=== PATIENT | female | born 1945 | race Hispanic/Latino ===

== ENCOUNTER 2019-02-23 14:10 | Inpatient (IN) | payer MEDICARE ==
[~2019-02-23] VITALS: Ht 157.5 cm; Wt 51.5 kg
[2019-02-23 14:49] LABS: BASOPHILS % (AUTO) 0.3 % (0.0-5.0); HEMATOCRIT 34.2 % (36-48); LYMPHOCYTES % (AUTO) 4.5 % (21.0-51.0); MEAN CORPUSCULAR HEMOGLOBIN 30.9 pg (27.0-33.0); MEAN CORPUSCULAR HGB CONC 32.5 g/dL (32.0-36.0); MEAN CORPUSCULAR VOLUME 95.2 fL (79-99); MONOCYTES % (AUTO) 4.7 % (3.0-13.0); NEUTROPHILS % (AUTO) 90.5 % (40.0-77.0); PLATELET COUNT (AUTO) 274 K/uL (130-400); RED BLOOD CELL COUNT(AUTO) 3.59 MIL/uL (4.00-5.50); RED CELL DISTRIBUTION WIDTH 13.5 % (11.0-15.5); WHITE BLOOD COUNT (AUTO) 15.8 K/uL (4.8-10.8)
[2019-02-23 14:58] LABS: APPEARANCE,URINE TURBID (CLEAR); BILIRUBIN,URINE NEGATIVE (NEGATIVE); COLOR,URINE YELLOW (YELLOW); GLUCOSE, URINE (UA) >=1000 mg/dL (NEGATIVE); KETONES,URINE 40 mg/dL (NEGATIVE); LEUKOCYTE ESTERASE ,URINE MODERATE (NEGATIVE); NITRATE,URINE NEGATIVE (NEGATIVE); OCCULT BLOOD,URINE LARGE (NEGATIVE); PROTEIN,URINE 30 mg/dL (NEGATIVE); UROBILINOGEN,URINE 0.2 mg/dL (0.2-1.0)
[2019-02-23] MEDS ORDERED: CEFTRIAXONE SODIUM 1 GM ONE (15:01)
[2019-02-23] MEDS ORDERED: SODIUM CHLORIDE 0.9% 1000ML 1,000 ML IV ONE ×2 (15:01→19:28)
[2019-02-23] MEDS ORDERED: SODIUM CHLORIDE 0.9% 50 ML IV ONE (15:02)
[2019-02-23 15:03] LABS: INR 0.93 (0.85-1.15); PARTIAL THROMBOPLASTIN TIME 23.6 SEC (26.3-35.5); PROTHROMBIN TIME 9.8 SEC (9.6-11.6)
[2019-02-23 15:28] LABS: YEAST,URINE BUDDING Many /HPF (None Seen)
[2019-02-23 15:28] LABS: CREATINE KINASE, TOTAL 182 U/L (21-232); MYOGLOBIN 332 ng/mL (10-92); TROPONIN I < 0.04 ng/mL (0.00-0.06)
[2019-02-23 15:29] LABS: BACTERIA,URINE Moderate /HPF (None Seen); MUCUS,URINE Few LPF (None Seen)
[2019-02-23] MEDS ORDERED: SODIUM CHLORIDE 0.9% 500ML 500 ML IV ONE (15:45)
[2019-02-23 16:08] LABS: ALBUMIN 3.1 g/dL (3.5-5.0); BILIRUBIN,TOTAL 0.6 mg/dL (0.2-1.0); POTASSIUM 5.8 mmol/L (3.5-5.1); TOTAL PROTEIN, SERUM 7.8 g/dL (6.0-8.3)
[2019-02-23] MEDS ORDERED: CALCIUM GLUCONATE 1 GM/10 ML VIAL IV ONE (16:18)
[2019-02-23] MEDS ORDERED: SODIUM CHLORIDE 0.9% 100 ML IV ONE (16:30)
[2019-02-23] MEDS ORDERED: INSULIN HUMULIN R 100 UNIT/ML 3ML ONE (16:32)
[2019-02-23 16:43] LABS: ABG BASE EXCESS -16.3 mmol/L (-2.0-3.0); ABG HCO3 8.5 mmol/L (21.0-28.0); ABG OXYGEN SATURATION 94.4 % (95.0-99.0); ABG PCO2 20 mmHg (32-45)
[2019-02-23] MEDS ORDERED: SODIUM CHLORIDE 0.9% 1000ML 1,000 ML IV SCH (19:06)
[2019-02-23] MEDS: SODIUM CHLORIDE 0.9% 1000ML 1,000 ML IV SCH (19:06)
[2019-02-23] MEDS ORDERED: MAGNESIUM 2GM PREMIX 50ML 50 ML IV PRN (19:15)
[2019-02-23] MEDS ORDERED: INSULIN HUMULIN R 100 UNIT/ML 3ML IV SCH (19:15)
[2019-02-23] MEDS ORDERED: DEXTROSE 5 %-0.45 % NACL 1,000 ML IV ONE (19:29)
[2019-02-23 19:44] LABS: CREATININE 3.4 mg/dL (0.5-1.5); MAGNESIUM 2.7 mg/dL (1.80-2.40); POTASSIUM 4.4 mmol/L (3.5-5.1)
[2019-02-23] MEDS: CEFTRIAXONE SODIUM 1 GM IVP SCH (19:45)
[2019-02-23 20:07] LABS: ABG BASE EXCESS -13.7 mmol/L (-2.0-3.0); ABG HCO3 10.1 mmol/L (21.0-28.0); ABG OXYGEN SATURATION 97.9 % (95.0-99.0); ABG PCO2 21 mmHg (32-45)
[2019-02-23] MEDS ORDERED: FAMOTIDINE/PF 20 MG/2 ML VIAL IV ONE (20:27)
[2019-02-23] MEDS ORDERED: ONDANSETRON HCL 4 MG/2 ML VIAL ONE (20:27)
[2019-02-23 23:45] VITALS: BP 96/43
[2019-02-23] MEDS ORDERED: ONDANSETRON HCL 4 MG/2 ML VIAL IVP PRN (23:45)
[2019-02-24] VITALS (57 sets, daily range): BP systolic 85–124; BP diastolic 41–61
[2019-02-24 01:27] LABS: ABG BASE EXCESS -9.2 mmol/L (-2.0-3.0); ABG HCO3 15.8 mmol/L (21.0-28.0); ABG OXYGEN SATURATION 96.1 % (95.0-99.0); ABG PCO2 33 mmHg (32-45)
[2019-02-24] MEDS: DEXTROSE 5 %-0.45 % NACL 1,000 ML IV PRN ×2 (01:42→11:00)
[2019-02-24] MEDS ORDERED: METO25TA6 PO (05:07)
[2019-02-24] MEDS ORDERED: DOCU100C33 PO (05:07)
[2019-02-24] MEDS ORDERED: PREG150C PO (05:07)
[2019-02-24] MEDS ORDERED: DONE5TAB33 PO (05:07)
[2019-02-24] MEDS ORDERED: INSU100C14 SQ (05:07)
[2019-02-24] MEDS ORDERED: NIFE30TA98 PO (05:07)
[2019-02-24 07:29] LABS: CREATININE 2.8 mg/dL (0.5-1.5); MAGNESIUM 2.5 mg/dL (1.80-2.40); POTASSIUM 3.6 mmol/L (3.5-5.1)
[2019-02-24] MEDS: SODIUM CHLORIDE 0.9% 1000ML 1,000 ML IV SCH ×5 (07:45→20:47)
[2019-02-24] MEDS: FAMOTIDINE/PF 20 MG/2 ML VIAL IV SCH (07:58)
[2019-02-24] MEDS: CEFTRIAXONE SODIUM 1 GM IVP SCH ×2 (07:58→20:47)
[2019-02-24] MEDS: FLUCONAZOLE 200 MG/NS 100 ML 100 ML IV SCH (07:58)
--- NOTE | 2019-02-24 12:08 | NUR ---
DR. BRADSHAW IN ROOM ASSESSING/SPEAKING WITH PT. RE:PLAN OF CARE. QUESTIONS ANSWERED BY DR. BRADSHAW, PT. VERBALIZED UNDERSTANDING.
[2019-02-24] MEDS: INSULIN LISPRO 100 UNIT/ML 3ML SQ SCH ×2 (12:55→17:28)
[2019-02-24 13:00] LABS: ABG HCO3 18.1 mmol/L (21.0-28.0); ABG OXYGEN SATURATION 97.5 % (95.0-99.0); ABG PCO2 32 mmHg (32-45)
[2019-02-24 13:24] LABS: CREATININE 2.5 mg/dL (0.5-1.5); MAGNESIUM 2.4 mg/dL (1.80-2.40); POTASSIUM 3.4 mmol/L (3.5-5.1)
--- NOTE | 2019-02-24 15:57 | NUR ---
DC PLAN PER PATIENT, LIVES WITH DAUGHTER AND GRANDCHILD AND IS INDEPENDENT. NO PROVIDER SERVICES, HAS EBONY AND VINEET. PER PATIENT, FEELS SAFE TO RETURN HOME. Addendum: 02/24/19 at 1559 by GLENNA ELAM Amended: Links added.
[2019-02-24] MEDS: ENOXAPARIN SODIUM 30 MG/0.3 ML SQ SCH (20:48)
[2019-02-24] MEDS: INSULIN GLARGINE 100 UNITS/ML 10 ML VIAL SQ SCH (20:48)
[2019-02-25] VITALS (9 sets, daily range): BP systolic 126–152; BP diastolic 52–75
[2019-02-25 03:36] LABS: HEMATOCRIT 26.6 % (36-48); MEAN CORPUSCULAR HEMOGLOBIN 31.3 pg (27.0-33.0); MEAN CORPUSCULAR HGB CONC 33.9 g/dL (32.0-36.0); MEAN CORPUSCULAR VOLUME 92.4 fL (79-99); PLATELET COUNT (AUTO) 199 K/uL (130-400); RED BLOOD CELL COUNT(AUTO) 2.88 MIL/uL (4.00-5.50); RED CELL DISTRIBUTION WIDTH 13.4 % (11.0-15.5); WHITE BLOOD COUNT (AUTO) 8.3 K/uL (4.8-10.8)
[2019-02-25 03:44] LABS: HEMOGLOBIN A1C 12.7 % (4.0-6.0)
[2019-02-25 04:03] LABS: CREATININE 1.6 mg/dL (0.5-1.5); MAGNESIUM 2.1 mg/dL (1.80-2.40); PHOSPHORUS 2.8 mg/dL (2.5-4.9); POTASSIUM 3.5 mmol/L (3.5-5.1); THYROID STIMULATING HORMONE 0.71 uIU/mL (0.36-3.74)
[2019-02-25] MEDS: INSULIN LISPRO 100 UNIT/ML 3ML SQ SCH ×3 (06:12→16:27)
[2019-02-25] MEDS: SODIUM CHLORIDE 0.9% 1000ML 1,000 ML IV SCH ×4 (06:12→23:48)
[2019-02-25] MEDS: CEFTRIAXONE SODIUM 1 GM IVP SCH ×2 (08:33→16:20)
[2019-02-25] MEDS: FLUCONAZOLE 200 MG/NS 100 ML 100 ML IV SCH (08:34)
[2019-02-25] MEDS: ENOXAPARIN SODIUM 30 MG/0.3 ML SQ SCH (08:34)
[2019-02-25] MEDS: FAMOTIDINE/PF 20 MG/2 ML VIAL IV SCH (08:35)
--- NOTE | 2019-02-25 11:30 | NUR ---
Dr. Weiss at bedside rounding and reviewed plan of care for the day. Ordered lactulose 1 time dose to be given
[2019-02-25] MEDS: NIFEDIPINE ER 30 MG TAB PO SCH (11:31)
[2019-02-25] MEDS: PREGABALIN 75 MG CAPSULE PO SCH (11:32)
--- NOTE | 2019-02-25 12:20 | NUR ---
Report given to Magnolia MANZANARES at about 1150. Patient transferred to room 313 from icu room 209 at 1220. All belonging went with the patient.
[2019-02-25] MEDS ORDERED: LACTULOSE 20 GM/30 ML UDCUP PO SCH ×2 (13:00→14:00)
[2019-02-25] MEDS ORDERED: LACTULOSE 20 GM/30 ML UDCUP ONE (16:18)
[2019-02-25] MEDS: METOPROLOL TARTRATE 25 MG TAB PO SCH (21:19)
[2019-02-25] MEDS: DOCUSATE SODIUM 100 MG CAP PO SCH (21:19)
[2019-02-25] MEDS: INSULIN GLARGINE 100 UNITS/ML 10 ML VIAL SQ SCH (21:20)
[2019-02-25] MEDS: ACYCLOVIR 800 MG TABLET PO SCH (22:01)
[2019-02-25] MEDS ORDERED: ACYCLOVIR TP SCH (23:00)
[2019-02-26 04:00] VITALS: BP 137/80
[2019-02-26] MEDS: ACYCLOVIR 800 MG TABLET PO SCH ×5 (06:06→22:12)
[2019-02-26] MEDS: CEFTRIAXONE SODIUM 1 GM IVP SCH ×2 (06:06→17:40)
[2019-02-26] MEDS: INSULIN LISPRO 100 UNIT/ML 3ML SQ SCH ×3 (06:07→17:50)
[2019-02-26] MEDS: SODIUM CHLORIDE 0.9% 1000ML 1,000 ML IV SCH (07:06)
[2019-02-26 08:00] VITALS: BP 162/85
[2019-02-26] MEDS: METOPROLOL TARTRATE 25 MG TAB PO SCH ×2 (09:17→19:45)
[2019-02-26] MEDS: NIFEDIPINE ER 30 MG TAB PO SCH (09:17)
[2019-02-26] MEDS: DONEPEZIL HCL 5 MG TAB PO SCH (09:17)
[2019-02-26] MEDS: FAMOTIDINE/PF 20 MG/2 ML VIAL IV SCH (09:17)
[2019-02-26] MEDS: PREGABALIN 75 MG CAPSULE PO SCH (09:17)
[2019-02-26] MEDS: DOCUSATE SODIUM 100 MG CAP PO SCH ×2 (09:17→19:45)
[2019-02-26] MEDS: ENOXAPARIN SODIUM 30 MG/0.3 ML SQ SCH (09:18)
[2019-02-26] MEDS: FLUCONAZOLE 200 MG/NS 100 ML 100 ML IV SCH (09:18)
[2019-02-26 09:23] LABS: BASOPHILS % (AUTO) 0.7 % (0.0-5.0); EOSINOPHILS % (AUTO) 0.9 % (0.0-8.0); HEMATOCRIT 31.7 % (36-48); LYMPHOCYTES % (AUTO) 17.3 % (21.0-51.0); MEAN CORPUSCULAR HEMOGLOBIN 31.2 pg (27.0-33.0); MEAN CORPUSCULAR HGB CONC 33.8 g/dL (32.0-36.0); MEAN CORPUSCULAR VOLUME 92.1 fL (79-99); MONOCYTES % (AUTO) 9.3 % (3.0-13.0); NEUTROPHILS % (AUTO) 71.8 % (40.0-77.0); PLATELET COUNT (AUTO) 218 K/uL (130-400); RED BLOOD CELL COUNT(AUTO) 3.45 MIL/uL (4.00-5.50); WHITE BLOOD COUNT (AUTO) 6.7 K/uL (4.8-10.8)
[2019-02-26 09:35] LABS: CREATININE 0.9 mg/dL (0.5-1.5); MAGNESIUM 1.4 mg/dL (1.80-2.40); PHOSPHORUS 2.6 mg/dL (2.5-4.9)
[2019-02-26 10:16] LABS: POTASSIUM 2.8 mmol/L (3.5-5.1)
[2019-02-26] MEDS: POTASSIUM CHLORIDE 10MEQ/100ML 100 ML IV PRN ×2 (10:21→13:19)
[2019-02-26 12:00] VITALS: BP 140/71
[2019-02-26 16:00] VITALS: BP 152/76
[2019-02-26] MEDS ORDERED: POTASSIUM CHLORIDE 20MEQ/100ML 100 ML IV ONE (18:50)
[2019-02-26 19:00] VITALS: BP 122/50
[2019-02-26] MEDS ORDERED: POTASSIUM CHLORIDE 20 MEQ ERTAB PO PRN (19:00)
[2019-02-26] MEDS ORDERED: LIDOCAINE HCL-MPF 1% 2ML VIAL IV PRN ×2 (19:00)
[2019-02-26] MEDS ORDERED: POTASSIUM CHLORIDE 20MEQ/100ML 100 ML IV PRN (19:00)
[2019-02-26] MEDS ORDERED: POTASSIUM CHLORIDE 10MEQ/100ML 100 ML IV PRN (19:00)
[2019-02-26] MEDS ORDERED: POTASSIUM CHLORIDE 10% ELIXIR 20 MEQ/15 ML UDCUP PO PRN ×2 (19:00)
[2019-02-26] MEDS: INSULIN GLARGINE 100 UNITS/ML 10 ML VIAL SQ SCH (20:38)
[2019-02-26] MEDS: POTASSIUM CHLORIDE 20 MEQ ERTAB PO PRN ×2 (21:15→22:46)
[2019-02-27] VITALS (9 sets, daily range): BP systolic 84–124; BP diastolic 40–65
[2019-02-27] MEDS: SODIUM CHLORIDE 0.9% 500ML 500 ML IV SCH ×2 (00:05→01:12)
--- NOTE | 2019-02-27 00:06 | NUR ---
Low BP Spoke with LUANA ANALYST PROGRAMMER regional flatbed truck driver hospitalist, and informed him that patient BP at first was 80/47, on re-check was 91/47. Patient asymptomatic states she feels perfectly fine. Orders received to give 500cc NS bolus x 1 dose. Will continue to monitor patient.
--- NOTE | 2019-02-27 01:00 | NUR ---
BLOOD PRESSURE INFORMED LUANA DIRECTOR CARD FOR HOSPITALIST THAT PATIENTS BP WAS 82/40 AFTER 500CC NS BOLUS WAS GIVEN. HE STATED HE WOULD BE DOWN TO ASSESS PATIENT.
--- NOTE | 2019-02-27 01:05 | NUR ---
OFFSHORE WIND TURBINE TECHNICIAN ROUNDS AJ WEAVER WIRE LOOM FOR HOSPITALIST IN PATIENTS ROOM ASSESSING PATIENT, PATIENT EASILY AROUSABLE STATED SHE FEELS FINE. ORDERS RECEIVED TO GIVE ANOTHER 500CC NS BOLUS WHICH WAS STARTED WHILE WEAVER WIRE LOOM WAS IN ROOM. WILL CONTINUE TO MONITOR PATIENT.
[2019-02-27] MEDS ORDERED: SODIUM CHLORIDE 0.9% 500ML 500 ML IV SCH (01:15)
--- NOTE | 2019-02-27 03:40 | NUR ---
LOW BP INFORMED AJ NAVIGATION OFFICER LEADERSHIP INTERN HOSPITALIST THAT PATIENTS BLOOD PRESSURE WAS 84/40 HR 76. INFORMED HIM THAT PATIENT IS ALERT AND STATES SHE FEELS FINE. NAVIGATION OFFICER STATED THAT SINCE PATIENT IS ASYMPTOMATIC AND SINCE WE HAVE ALREADY GIVEN THE PATIENT NS BOLUS X2, TO CONTINUE TO MONITOR PATIENT. NO FURTHER ORDERS RECEIVED AT THIS TIME.
[2019-02-27 05:16] LABS: BASOPHILS % (AUTO) 0.4 % (0.0-5.0); EOSINOPHILS % (AUTO) 0.9 % (0.0-8.0); HEMATOCRIT 25.2 % (36-48); LYMPHOCYTES % (AUTO) 20.2 % (21.0-51.0); MEAN CORPUSCULAR HEMOGLOBIN 31.4 pg (27.0-33.0); MEAN CORPUSCULAR HGB CONC 34.4 g/dL (32.0-36.0); MEAN CORPUSCULAR VOLUME 91.1 fL (79-99); NEUTROPHILS % (AUTO) 69.5 % (40.0-77.0); PLATELET COUNT (AUTO) 219 K/uL (130-400); RED BLOOD CELL COUNT(AUTO) 2.76 MIL/uL (4.00-5.50); WHITE BLOOD COUNT (AUTO) 7.7 K/uL (4.8-10.8)
[2019-02-27 05:23] LABS: CREATININE 1.2 mg/dL (0.5-1.5); POTASSIUM 3.5 mmol/L (3.5-5.1)
[2019-02-27] MEDS: ACYCLOVIR 800 MG TABLET PO SCH ×5 (05:33→23:36)
[2019-02-27] MEDS: POTASSIUM CHLORIDE 20 MEQ ERTAB PO PRN ×2 (05:34→21:18)
[2019-02-27] MEDS: INSULIN LISPRO 100 UNIT/ML 3ML SQ SCH ×3 (06:25→17:05)
[2019-02-27] MEDS: FLUCONAZOLE 200 MG/NS 100 ML 100 ML IV SCH (08:40)
[2019-02-27] MEDS: CEFTRIAXONE SODIUM 1 GM IVP SCH ×2 (08:41→21:18)
[2019-02-27] MEDS: DOCUSATE SODIUM 100 MG CAP PO SCH ×2 (08:42→21:18)
[2019-02-27] MEDS: ENOXAPARIN SODIUM 30 MG/0.3 ML SQ SCH (08:42)
[2019-02-27] MEDS: NIFEDIPINE ER 30 MG TAB PO SCH (08:42)
[2019-02-27] MEDS: PREGABALIN 75 MG CAPSULE PO SCH (08:42)
[2019-02-27] MEDS: METOPROLOL TARTRATE 25 MG TAB PO SCH ×2 (08:43→21:18)
[2019-02-27] MEDS: DONEPEZIL HCL 5 MG TAB PO SCH (08:43)
[2019-02-27] MEDS: FAMOTIDINE/PF 20 MG/2 ML VIAL IV SCH (09:37)
--- NOTE | 2019-02-27 13:00 | NUR ---
SNF Met w pt this afternoon to discuss Md recommendations for short term SNF. Pt is in agreement. ELY/PC consent signed for [facility]. Clinical/PASRR faxed to [facility]. Spoke to Bailey over the phone regarding new referral. States will come by later today to eval pt. CM to continue to follow and wait for determination.
[2019-02-27] MEDS: INSULIN GLARGINE 100 UNITS/ML 10 ML VIAL SQ SCH (21:00)
[2019-02-28] VITALS (7 sets, daily range): BP systolic 98–144; BP diastolic 51–70
[2019-02-28 05:08] LABS: BASOPHILS % (AUTO) 0.6 % (0.0-5.0); EOSINOPHILS % (AUTO) 1.4 % (0.0-8.0); HEMATOCRIT 26.4 % (36-48); LYMPHOCYTES % (AUTO) 22.6 % (21.0-51.0); MEAN CORPUSCULAR HEMOGLOBIN 31.4 pg (27.0-33.0); MEAN CORPUSCULAR HGB CONC 33.7 g/dL (32.0-36.0); MONOCYTES % (AUTO) 7.2 % (3.0-13.0); NEUTROPHILS % (AUTO) 68.2 % (40.0-77.0); NUCLEATED RED BLOOD CELLS 0.1 % (0.0-0.19); PLATELET COUNT (AUTO) 242 K/uL (130-400); RED BLOOD CELL COUNT(AUTO) 2.83 MIL/uL (4.00-5.50); RED CELL DISTRIBUTION WIDTH 13.6 % (11.0-15.5); WHITE BLOOD COUNT (AUTO) 7.4 K/uL (4.8-10.8)
[2019-02-28 05:19] LABS: POTASSIUM 3.8 mmol/L (3.5-5.1)
[2019-02-28] MEDS: INSULIN LISPRO 100 UNIT/ML 3ML SQ SCH ×3 (06:14→17:00)
[2019-02-28] MEDS: CEFTRIAXONE SODIUM 1 GM IVP SCH ×2 (06:21→22:29)
[2019-02-28] MEDS: ACYCLOVIR 800 MG TABLET PO SCH ×5 (06:22→23:45)
[2019-02-28] MEDS: METOPROLOL TARTRATE 25 MG TAB PO SCH ×2 (09:04→22:29)
[2019-02-28] MEDS: PREGABALIN 75 MG CAPSULE PO SCH (09:04)
[2019-02-28] MEDS: DONEPEZIL HCL 5 MG TAB PO SCH (09:04)
[2019-02-28] MEDS: FAMOTIDINE/PF 20 MG/2 ML VIAL IV SCH (09:04)
[2019-02-28] MEDS: DOCUSATE SODIUM 100 MG CAP PO SCH ×2 (09:05→22:29)
[2019-02-28] MEDS: NIFEDIPINE ER 30 MG TAB PO SCH (09:05)
[2019-02-28] MEDS: ENOXAPARIN SODIUM 30 MG/0.3 ML SQ SCH (09:05)
[2019-02-28] MEDS: FLUCONAZOLE 200 MG/NS 100 ML 100 ML IV SCH (09:11)
--- NOTE | 2019-02-28 17:05 | NUR ---
Nutrition Intervention: Nutrition screen based on LOS x 5 days. Pt. admitted with Dx of diabetic ketoacidosis. Pt. pending SNF placement. Unable to speak with pt. during RD visit due to pt. was vomiting at the time- COMPUTER SUPPORT ANALYST aware. Pt. has Zofran prescribed for upper GI distress. Pt. on 75gm CCD diet with good p.o.intake. Labs reviewed(Alb 3.1, BG 139, HgbA1c 12.7%). LBM: 02/26/19. SR-18, perineum pustules. BMI: 20.8, appropriate for age. Recommendations: 1) Rec. 60g CCD diet. 2) Continue to monitor pt's nutritional status. 3) Consult RD as nutrition concerns arise. Addendum: 02/28/19 at [address] Amended: Links added.
--- NOTE | 2019-02-28 20:13 | NUR ---
Changes Of Mind In Placement Pt and family changed their mind, refused placement to [facility] and opted for [facility] In patient rehab. Pending authorization and acceptance.
[2019-02-28] MEDS: INSULIN GLARGINE 100 UNITS/ML 10 ML VIAL SQ SCH (22:36)
[2019-03-01 03:38] VITALS: BP 127/55
[2019-03-01] MEDS: ACYCLOVIR 800 MG TABLET PO SCH ×4 (07:09→18:49)
[2019-03-01] MEDS: INSULIN LISPRO 100 UNIT/ML 3ML SQ SCH ×3 (07:13→17:19)
[2019-03-01] MEDS: CEFTRIAXONE SODIUM 1 GM IVP SCH (08:08)
[2019-03-01] MEDS: FAMOTIDINE/PF 20 MG/2 ML VIAL IV SCH (08:08)
[2019-03-01] MEDS: DOCUSATE SODIUM 100 MG CAP PO SCH (08:08)
[2019-03-01] MEDS: DONEPEZIL HCL 5 MG TAB PO SCH (08:08)
[2019-03-01] MEDS: METOPROLOL TARTRATE 25 MG TAB PO SCH (08:10)
[2019-03-01] MEDS: PREGABALIN 75 MG CAPSULE PO SCH (08:11)
[2019-03-01] MEDS: NIFEDIPINE ER 30 MG TAB PO SCH (08:11)
[2019-03-01] MEDS: ENOXAPARIN SODIUM 30 MG/0.3 ML SQ SCH (08:11)
[2019-03-01 08:14] VITALS: BP 133/61
[2019-03-01] MEDS ORDERED: FLUCONAZOLE 100 MG TAB PO SCH (08:15)
[2019-03-01 12:00] VITALS: BP 121/60
[2019-03-01] MEDS ORDERED: ACYC800T PO (13:47)
--- NOTE | 2019-03-01 14:21 | NUR ---
ATTEMPTED REPORT CALLED TO [facility] THE STEEL WOOL MACHINE OPERATOR ATTEMPTED X2 TO CALL REPORT FOR PT D/C TO [facility] BUT NO RESPONSE AT THIS TIME, NURSING WILL CONTINUE TO FOLLOW UP.
--- NOTE | 2019-03-01 14:45 | NUR ---
PATIENT HAS BEEN ACCPTED AT [facility] GLENNA TIRED TO CALL REPORT [place] BUT NO ONE PICKED UP. JL ALSO TIRED, MULTIPEL TIMES THROUGH THE MAIN NUMBER AND DIRECTLY- BUT WAS NOT ABLE TO SPEAK TO ANYONE. WILL AWAIT TRANSPORT Addendum: 03/01/19 at 1521 by DEDE BROCK RN CM Amended: Links added.
--- NOTE | 2019-03-01 14:46 | NUR ---
PATIENT ACCEPTED AT [facility] RN ATTEMPTED TO CALL REPORT EARLIER BUT NO ONE PICKED UP. CM ALSO ATTEMPTED, MULTIPLE TIMES THROUGH THE MAIN NUMBER [phone] AND [phone] AND [phone] BUT WAS NOT ABLE TO SPEAK TO ANYONE. WILL AWAIT TRANSPORT.
--- NOTE | 2019-03-01 15:50 | NUR ---
CALL PLACED TO [facility] Call placed to [facility], Spoke with Babs, She stated as at the time they are unable to take report and will call this radio script writer back as soon as they become available, Gave them #[phone] to call when ready. Nursing will continue to follow up. Daughter with POA also made aware and updated.
--- NOTE | 2019-03-01 19:04 | NUR ---
[facility] I[facility]U ISSUE ESCALATED TO ILIANA REGARDING GIVING REPORT TO NURSE IN [facility], ILIANA ALSO ESCALATED THE ISSUE, LATER GOT A CALL FROM LAURA, REPORT GIVEN, FAMILY MEMBER (POLLY) NOT AVAILABLE TO ANSWER CALL TO PROVIDE TRANSPORTATION TO PT. NURSING WILL CONTINUE TO FOLLOW UP.
--- NOTE | 2019-03-01 20:14 | NUR ---
PT D/C PT FINALLY D/C, DAUGHTER (POLLY) WAS HERE TO GLOBAL MARKETING MANAGER PT @ 2004, D/C INSTRUCTION PROVIDED AND EXPLAINED TO PT AND FAMILY MEMBER, PT IS GOING TO ROOM 4313 AT [facility]. PT AND FAMILY TO CALL [phone] AT [facility] AND WILL BE DIRECTED, PT AND FAMILY VERBALIZED UNDERSTANDING OF D/C INSTRUCTION, PT SAFELY D/C WITH PRIVATE TRANSPORT. REPORT GIVEN TO LAURA.
== END 2019-03-01 20:25 | DRG 871 ==
LOC: EDH 14:10 → EDHIP 19:10 → 2BH 23:31 → 2CV 02-25 11:51 → 3CH 02-25 11:54
PROVIDERS: ADMIT Internal Medicine; ATTEND Internal Medicine
DX: A41.9 Sepsis, unspecified organism (principal); E11.10 Type 2 diabetes mellitus with ketoacidosis without coma; G93.41 Metabolic encephalopathy; N18.6 End stage renal disease; N39.0 Urinary tract infection, site not specified; N17.9 Acute kidney failure, unspecified; E87.1 Hypo-osmolality and hyponatremia; I12.0 Hypertensive chronic kidney disease with stage 5 chronic kidney disease or end stage renal disease; G93.49 Other encephalopathy; M62.82 Rhabdomyolysis; J44.9 Chronic obstructive pulmonary disease, unspecified; Z96.41 Presence of insulin pump (external) (internal); E87.5 Hyperkalemia; R65.20 Severe sepsis without septic shock; E11.22 Type 2 diabetes mellitus with diabetic chronic kidney disease; B02.9 Zoster without complications; I95.9 Hypotension, unspecified; E86.1 Hypovolemia; Z79.899 Other long term (current) drug therapy; Z79.4 Long term (current) use of insulin; Z91.81 History of falling
CPT/HCPCS: 36415; 36600; 71045; 80048; 80053; 81001; 82010; 82550; 82803; 82948; 83036; 83605; 83735; 83874; 84100; 84132; 84145; 84443; 84484; 85025; 85027; 85610; 85730; 87040; 87088; 93005; 97039; 99291; G0378; J0610; J0696; J1450; J1650; J1815; J2405; J3480; J3490; J7030; J7040; J7042

== ENCOUNTER 2019-10-16 11:34 | Inpatient (IN) | payer MEDICARE ==
[2019-10-16] VITALS (15 sets, daily range): BP systolic 90–119; BP diastolic 34–67
[~2019-10-16] VITALS: Ht 162.6 cm; Wt 56.4 kg
[2019-10-16] MEDS ORDERED: ONDANSETRON HCL 4 MG/2 ML VIAL ONE ×2 (11:42→15:15)
[2019-10-16] MEDS ORDERED: INSULIN HUMULIN R 100 UNIT/ML 3ML ONE (11:43)
[2019-10-16] MEDS ORDERED: SODIUM CHLORIDE 0.9% 1000ML 1,000 ML IV ONE ×2 (11:43→13:19)
[2019-10-16 12:00] LABS: BASOPHILS % (AUTO) 0.1 % (0.0-5.0); EOSINOPHILS % (AUTO) 1.7 % (0.0-8.0); LYMPHOCYTES % (AUTO) 3.8 % (21.0-51.0); MEAN CORPUSCULAR HEMOGLOBIN 30.5 pg (27.0-33.0); MEAN CORPUSCULAR HGB CONC 30.6 g/dL (32.0-36.0); MEAN CORPUSCULAR VOLUME 99.7 fL (79-99); MONOCYTES % (AUTO) 5.9 % (3.0-13.0); NEUTROPHILS % (AUTO) 88.1 % (40.0-77.0); PLATELET COUNT (AUTO) 338 K/uL (130-400); RED BLOOD CELL COUNT(AUTO) 3.41 MIL/uL (4.00-5.50); RED CELL DISTRIBUTION WIDTH 13.6 % (11.0-15.5); WHITE BLOOD COUNT (AUTO) 10.4 K/uL (4.8-10.8)
[2019-10-16 12:03] LABS: APPEARANCE,URINE TURBID (CLEAR); BILIRUBIN,URINE NEGATIVE (NEGATIVE); COLOR,URINE ORANGE (YELLOW); GLUCOSE, URINE (UA) 250 mg/dL (NEGATIVE); KETONES,URINE 15 mg/dL (NEGATIVE); LEUKOCYTE ESTERASE ,URINE MODERATE (NEGATIVE); NITRATE,URINE POSITIVE (NEGATIVE); OCCULT BLOOD,URINE LARGE (NEGATIVE); PROTEIN,URINE 100 mg/dL (NEGATIVE)
[2019-10-16 12:03] LABS: ABG BASE EXCESS -20.8 mmol/L (-2.0-3.0); ABG HCO3 6.1 mmol/L (21.0-28.0); ABG PCO2 18 mmHg (32-45)
[2019-10-16] MEDS ORDERED: SODIUM CHLORIDE 0.9% 100 ML IV ONE (12:15)
[2019-10-16 12:21] LABS: ALBUMIN 3.6 g/dL (3.5-5.0); BILIRUBIN,TOTAL 0.7 mg/dL (0.2-1.0); CREATININE 5.8 mg/dL (0.5-1.5); TOTAL PROTEIN, SERUM 8.4 g/dL (6.0-8.3)
[2019-10-16 12:21] LABS: BACTERIA,URINE Many /HPF (None Seen); RBC,URINE 51-100 /HPF (0-1); SQUAMOUS EPITHELIAL CELL,UR None Seen /HPF (0-2); WBC,URINE >100 /HPF (0-1); YEAST,URINE BUDDING Many /HPF (None Seen)
[2019-10-16 12:27] LABS: POTASSIUM 6.2 mmol/L (3.5-5.1)
[2019-10-16] MEDS ORDERED: SODIUM CHLORIDE 0.9% 50 ML IV ONE (12:28)
[2019-10-16] MEDS ORDERED: CEFTRIAXONE SODIUM 2 GM VIAL ONE (12:28)
[2019-10-16 12:35] LABS: B-TYPE NATRIURETIC PEPTIDE 116 pg/mL (0-100)
[2019-10-16] MEDS ORDERED: CALCIUM GLUCONATE 1 GM/10 ML VIAL IV ONE (12:37)
[2019-10-16] MEDS ORDERED: SODIUM BICARB 50MEQ 50ML VIAL ONE ×2 (12:38→13:18)
[2019-10-16] MEDS ORDERED: ALBUTEROL SULFATE 0.083% 2.5 MG/3 ML INH IH ONE (12:51)
[2019-10-16] MEDS ORDERED: MAG HYDROX/AL HYDROX/SIMETH ES 30 ML SUSP UDCUP PO PRN (14:00)
[2019-10-16] MEDS ORDERED: ONDANSETRON HCL 4 MG/2 ML VIAL IV PRN (14:00)
[2019-10-16] MEDS ORDERED: GUAIFENESIN-DM 200/20 MG 10 ML PO PRN (14:00)
[2019-10-16] MEDS ORDERED: LACTULOSE 20 GM/30 ML UDCUP PO PRN (14:00)
[2019-10-16] MEDS ORDERED: ACETAMINOPHEN 325 MG TAB PO PRN (14:00)
[2019-10-16] MEDS ORDERED: DiphenhydrAMINE HCL 50 MG/ML VIAL IV PRN (14:00)
[2019-10-16] MEDS ORDERED: NITROGLYCERIN 0.4 MG SL TAB SL PRN (14:00)
[2019-10-16] MEDS ORDERED: INSULIN REGULAR, HUMAN 3ML 100 UNIT in SODIUM CHLORIDE 0.9% 99 ML IV PRN ×2 (14:00)
[2019-10-16] MEDS: ZOSYN 3.375GM+NS 50ML 50 ML IV SCH (14:15)
[2019-10-16] MEDS ORDERED: POTASSIUM CHLORIDE 10% ELIXIR 20 MEQ/15 ML UDCUP PO PRN (14:30)
[2019-10-16] MEDS ORDERED: POTASSIUM CHLORIDE 10MEQ/100ML 100 ML IV PRN ×2 (14:30)
[2019-10-16] MEDS ORDERED: ZOSYN 3.375GM+NS 50ML 50 ML IV ONE (14:46)
[2019-10-16] MEDS ORDERED: LACTATED RINGERS 1000ML 1,000 ML IV ONE (15:15)
[2019-10-16] MEDS: LACTATED RINGERS 1000ML 1,000 ML IV SCH ×2 (15:17→23:22)
[2019-10-16] MEDS ORDERED: ONDA4TAB4 PO (15:40)
[2019-10-16] MEDS ORDERED: GABA300C PO (15:40)
[2019-10-16] MEDS ORDERED: DONE5TAB33 PO (15:40)
[2019-10-16] MEDS ORDERED: INSU100I3 SQ (15:40)
[2019-10-16] MEDS ORDERED: NIFE30TA98 PO (15:40)
[2019-10-16] MEDS ORDERED: LISI-617 PO (15:40)
[2019-10-16] MEDS ORDERED: METO25 PO (15:40)
[2019-10-16 17:31] LABS: CREATININE 5.1 mg/dL (0.5-1.5); POTASSIUM 3.7 mmol/L (3.5-5.1)
[2019-10-16] MEDS: SODIUM CHLORIDE 0.9% 1000ML 1,000 ML IV SCH ×2 (19:00→20:00)
[2019-10-16] MEDS ORDERED: SODIUM CHLORIDE 0.9% 1000ML 2,000 ML IV ONE (19:23)
--- NOTE | 2019-10-16 21:46 | NUR ---
Report received from Dannielle MANZANARES on patient received in ICU at 1515. Oriented to own name. Confused statements. Oriented pt to place. Stated "Oh, I forgot I was in the hospital." Patient has dementia as per daughter according to [facility] nurse Dannielle's report. States patient takes Aricept at home. Insulin drip infusing at 7 units/hr. Initial assessment completed. Call light and needed items placed readily at hand. Encouraged to call prn.
[2019-10-16 22:08] LABS: CREATININE 4.3 mg/dL (0.5-1.5); POTASSIUM 3.8 mmol/L (3.5-5.1)
--- NOTE | 2019-10-16 23:03 | NUR ---
2150 Glucometer down to 149. Insulin drip stopped as per orders. BMP drawn. Anion Gap down to 10. Had a normal colored formed and loose bm, incontinent of urine. Pericare done. Call light and needed items readily at hand.
[2019-10-17] VITALS (18 sets, daily range): BP systolic 117–172; BP diastolic 46–77
[2019-10-17] MEDS: ZOSYN 3.375GM+NS 50ML 50 ML IV SCH (01:12)
[2019-10-17 04:40] LABS: ABG BASE EXCESS -6.8 mmol/L (-2.0-3.0); ABG HCO3 18.5 mmol/L (21.0-28.0); ABG OXYGEN SATURATION 96.7 % (95.0-99.0); ABG PCO2 36 mmHg (32-45)
[2019-10-17 06:06] LABS: BASOPHILS % (AUTO) 0.2 % (0.0-5.0); EOSINOPHILS % (AUTO) 0.7 % (0.0-8.0); LYMPHOCYTES % (AUTO) 7.3 % (21.0-51.0); MEAN CORPUSCULAR HEMOGLOBIN 30.3 pg (27.0-33.0); MEAN CORPUSCULAR HGB CONC 33.2 g/dL (32.0-36.0); MEAN CORPUSCULAR VOLUME 91.2 fL (79-99); MONOCYTES % (AUTO) 8.6 % (3.0-13.0); NEUTROPHILS % (AUTO) 82.6 % (40.0-77.0); PLATELET COUNT (AUTO) 254 K/uL (130-400); RED BLOOD CELL COUNT(AUTO) 2.74 MIL/uL (4.00-5.50); RED CELL DISTRIBUTION WIDTH 13.1 % (11.0-15.5); WHITE BLOOD COUNT (AUTO) 10.3 K/uL (4.8-10.8)
[2019-10-17 06:24] LABS: ALBUMIN 2.4 g/dL (3.5-5.0); BILIRUBIN,TOTAL 0.3 mg/dL (0.2-1.0); CREATININE 3.6 mg/dL (0.5-1.5); POTASSIUM 4.1 mmol/L (3.5-5.1); TOTAL PROTEIN, SERUM 5.8 g/dL (6.0-8.3)
[2019-10-17] MEDS: LACTATED RINGERS 1000ML 1,000 ML IV SCH ×2 (06:48→15:03)
[2019-10-17] MEDS ORDERED: SODIUM CHLORIDE 0.9% 1000ML 1,000 ML IV SCH (08:16)
[2019-10-17 08:56] LABS: CREATININE 3.3 mg/dL (0.5-1.5); POTASSIUM 4.4 mmol/L (3.5-5.1)
[2019-10-17] MEDS: ENOXAPARIN SODIUM 40 MG/0.4 ML SYRINGE SQ SCH (09:35)
[2019-10-17] MEDS: FAMOTIDINE/PF 20 MG/2 ML VIAL IV SCH (09:35)
[2019-10-17] MEDS: INSULIN GLARGINE 100 UNITS/ML 10 ML VIAL SQ SCH ×2 (09:44→21:04)
[2019-10-17] MEDS: INSULIN LISPRO 100 UNIT/ML 3ML SQ SCH ×5 (12:03→21:00)
[2019-10-17] MEDS ORDERED: METOPROLOL TARTRATE 25 MG TAB PO SCH ×2 (12:15→21:00)
--- NOTE | 2019-10-17 13:46 | NUR ---
DC PLAN VISITED WITH PATIENT. PATIENT POOR HISTORIAN. SPOKE TO DAUGHTER. PATIENT LIVES WITH HER. PATIENT HAS A WALKER. USES A GLUCOSE PROGRESSIVE DIE MAKER AT HOME. WANTED INFO REGARDING MEALS ON WHEELS. GAVE PERMISSION TO GIVE INFO TO DAD'S FOR POSSIBLE HELP. ALSO RECOMMENDED HOME HEALTH FOR GLUCOSE CHECKS. PER DAUGHTER CHECKS SUGARS FOUR TIMES A DAY. BUT IS OKAY WITH HOME HEALTH. NO PREFERENCE SAID WHICH EVER MD RECOMMENDS. CALLED MICHAELA DAWN TO ASK IF HE HAD A PREFERANCE. NURSE SAID NO WHICHEVER THE HOSPITAL MD RECOMMENDS. INFO SENT TO [facility] [employer]. Addendum: 10/17/19 at 1351 by ROBLES SANTACRUZ RN CM Amended: Links added.
[2019-10-17] MEDS: CEFTRIAXONE SODIUM 1 GM IVP SCH (15:03)
--- NOTE | 2019-10-17 17:12 | NUR ---
6354 BPCI Letter given to patient.
[2019-10-17] MEDS: METOPROLOL TARTRATE 25 MG TAB PO SCH (21:05)
[2019-10-18 03:42] VITALS: BP 127/42
[2019-10-18 05:34] LABS: BASOPHILS % (AUTO) 0.1 % (0.0-5.0); EOSINOPHILS % (AUTO) 1.1 % (0.0-8.0); HEMATOCRIT 23.9 % (36-48); LYMPHOCYTES % (AUTO) 16.4 % (21.0-51.0); MEAN CORPUSCULAR HEMOGLOBIN 30.2 pg (27.0-33.0); MEAN CORPUSCULAR HGB CONC 33.5 g/dL (32.0-36.0); MEAN CORPUSCULAR VOLUME 90.2 fL (79-99); MONOCYTES % (AUTO) 10.1 % (3.0-13.0); NEUTROPHILS % (AUTO) 71.5 % (40.0-77.0); PLATELET COUNT (AUTO) 248 K/uL (130-400); RED BLOOD CELL COUNT(AUTO) 2.65 MIL/uL (4.00-5.50); RED CELL DISTRIBUTION WIDTH 13.3 % (11.0-15.5); WHITE BLOOD COUNT (AUTO) 7.6 K/uL (4.8-10.8)
[2019-10-18 05:45] LABS: HEMOGLOBIN A1C 10.4 % (4.0-6.0)
[2019-10-18] MEDS: LACTATED RINGERS 1000ML 1,000 ML IV SCH ×3 (05:53→16:46)
[2019-10-18 05:56] LABS: ALBUMIN 2.1 g/dL (3.5-5.0); BILIRUBIN,TOTAL 0.2 mg/dL (0.2-1.0); CREATININE 1.8 mg/dL (0.5-1.5); PHOSPHORUS 1.5 mg/dL (2.5-4.9); POTASSIUM 3.1 mmol/L (3.5-5.1); TOTAL PROTEIN, SERUM 5.3 g/dL (6.0-8.3)
[2019-10-18] MEDS: INSULIN GLARGINE 100 UNITS/ML 10 ML VIAL SQ SCH (06:03)
[2019-10-18] MEDS: INSULIN LISPRO 100 UNIT/ML 3ML SQ SCH ×7 (06:04→21:00)
[2019-10-18 08:31] VITALS: BP 141/50
[2019-10-18] MEDS: FAMOTIDINE/PF 20 MG/2 ML VIAL IV SCH (09:14)
[2019-10-18] MEDS: ENOXAPARIN SODIUM 40 MG/0.4 ML SYRINGE SQ SCH (09:14)
[2019-10-18] MEDS: METOPROLOL TARTRATE 25 MG TAB PO SCH ×2 (09:14→22:59)
[2019-10-18] MEDS: POTASSIUM CHLORIDE 20 MEQ ERTAB PO PRN ×2 (10:34→16:46)
[2019-10-18 12:09] VITALS: BP 111/43
[2019-10-18] MEDS: CEFTRIAXONE SODIUM 1 GM IVP SCH (16:54)
[2019-10-18 17:07] VITALS: BP 146/54
[2019-10-18 20:12] VITALS: BP 152/82
[2019-10-18] MEDS ORDERED: INSULIN GLARGINE 100 UNITS/ML 10 ML VIAL SQ SCH (21:00)
[2019-10-18 23:32] VITALS: BP 155/80
[2019-10-19 04:00] VITALS: BP 176/87
[2019-10-19] MEDS: LACTATED RINGERS 1000ML 1,000 ML IV SCH ×2 (05:07→18:39)
[2019-10-19 05:52] LABS: BASOPHILS % (AUTO) 0.1 % (0.0-5.0); EOSINOPHILS % (AUTO) 0.6 % (0.0-8.0); HEMATOCRIT 26.4 % (36-48); MEAN CORPUSCULAR HEMOGLOBIN 30.2 pg (27.0-33.0); MEAN CORPUSCULAR HGB CONC 33.3 g/dL (32.0-36.0); MEAN CORPUSCULAR VOLUME 90.7 fL (79-99); MONOCYTES % (AUTO) 8.7 % (3.0-13.0); NEUTROPHILS % (AUTO) 69.9 % (40.0-77.0); PLATELET COUNT (AUTO) 247 K/uL (130-400); RED BLOOD CELL COUNT(AUTO) 2.91 MIL/uL (4.00-5.50); RED CELL DISTRIBUTION WIDTH 13.2 % (11.0-15.5); WHITE BLOOD COUNT (AUTO) 6.7 K/uL (4.8-10.8)
[2019-10-19 06:15] LABS: BILIRUBIN,TOTAL 0.2 mg/dL (0.2-1.0); CREATININE 1.3 mg/dL (0.5-1.5); POTASSIUM 3.3 mmol/L (3.5-5.1); TOTAL PROTEIN, SERUM 5.5 g/dL (6.0-8.3)
[2019-10-19] MEDS: INSULIN LISPRO 100 UNIT/ML 3ML SQ SCH ×7 (07:30→21:00)
[2019-10-19 08:00] VITALS: BP 155/76
[2019-10-19 08:44] LABS: % IRON SATURATION 30.8 % (22-44)
[2019-10-19] MEDS ORDERED: INSULIN GLARGINE 100 UNITS/ML 10 ML VIAL SQ SCH (09:00)
[2019-10-19] MEDS: FAMOTIDINE/PF 20 MG/2 ML VIAL IV SCH (10:18)
[2019-10-19] MEDS: METOPROLOL TARTRATE 25 MG TAB PO SCH ×2 (10:19→21:00)
[2019-10-19] MEDS: NIFEDIPINE ER 30 MG TAB PO SCH (10:19)
[2019-10-19] MEDS: FLUCONAZOLE 100 MG TAB PO SCH (10:19)
[2019-10-19] MEDS: ENOXAPARIN SODIUM 40 MG/0.4 ML SYRINGE SQ SCH (10:20)
[2019-10-19 11:00] VITALS: BP 150/67
[2019-10-19] MEDS ORDERED: PHENAZOPYRIDINE HCL 200 MG TABLET PO SCH (11:00)
[2019-10-19] MEDS: CEFTRIAXONE SODIUM 1 GM IVP SCH (12:47)
[2019-10-19] MEDS: GABAPENTIN 100 MG CAPSULE PO SCH ×2 (14:21→21:40)
[2019-10-19 16:00] VITALS: BP 160/66
[2019-10-19] MEDS ORDERED: MAGNESIUM 2GM PREMIX 50ML 50 ML IV ONE (18:25)
[2019-10-19] MEDS: POTASSIUM CHLORIDE 20 MEQ ERTAB PO PRN ×3 (18:41→21:59)
[2019-10-19] MEDS ORDERED: MAGNESIUM 2GM PREMIX 50ML 50 ML IV SCH (18:45)
[2019-10-19] MEDS: DONEPEZIL HCL 5 MG TAB PO SCH (21:40)
[2019-10-19 21:55] VITALS: BP_SYST 101; BP_SYST 124; BP_DIAS 41; BP_DIAS 73
[2019-10-20 00:51] VITALS: BP 100/41
[2019-10-20 04:00] VITALS: BP 101/43
[2019-10-20 05:50] LABS: MAGNESIUM 2.3 mg/dL (1.80-2.40); POTASSIUM 3.3 mmol/L (3.5-5.1)
[2019-10-20] MEDS: POTASSIUM CHLORIDE 20 MEQ ERTAB PO PRN ×2 (06:55→10:26)
[2019-10-20] MEDS: INSULIN LISPRO 100 UNIT/ML 3ML SQ SCH ×7 (06:55→21:00)
[2019-10-20] MEDS ORDERED: INSULIN GLARGINE 100 UNITS/ML 10 ML VIAL SQ SCH (08:15)
[2019-10-20 08:37] VITALS: BP 101/59
[2019-10-20] MEDS: FLUCONAZOLE 100 MG TAB PO SCH ×2 (10:18→14:47)
[2019-10-20] MEDS: FAMOTIDINE/PF 20 MG/2 ML VIAL IV SCH (10:18)
[2019-10-20] MEDS: ENOXAPARIN SODIUM 40 MG/0.4 ML SYRINGE SQ SCH (10:18)
[2019-10-20] MEDS: GABAPENTIN 100 MG CAPSULE PO SCH ×3 (10:18→21:06)
[2019-10-20] MEDS: METOPROLOL TARTRATE 25 MG TAB PO SCH ×2 (10:18→21:06)
[2019-10-20] MEDS: NIFEDIPINE ER 30 MG TAB PO SCH (10:19)
[2019-10-20] MEDS: LACTATED RINGERS 1000ML 1,000 ML IV SCH (10:24)
[2019-10-20 11:00] VITALS: BP 123/55
[2019-10-20] MEDS: CEFTRIAXONE SODIUM 1 GM IVP SCH (11:52)
[2019-10-20 16:00] VITALS: BP 123/53
--- NOTE | 2019-10-20 16:42 | NUR ---
DISPO HOME WITH HOME HEALTH REFERRAL TO [facility] Addendum: 10/20/19 at 1642 by DEDE BROCK RN CM Amended: Links added.
[2019-10-20 19:37] VITALS: BP 126/58
[2019-10-20] MEDS: DONEPEZIL HCL 5 MG TAB PO SCH (21:06)
--- NOTE | 2019-10-20 23:45 | NUR ---
INDWELLING CATHETER SWITCHED FR 16 SPANISH TO [address] PAVON Pt received with a pavon cath in place, urine cloudy orange , adequate in amount, reported with hematuria, none noted. Catheter discontinued and inserted an [address] pavon cath as suggested by Dr. Villatoro. CBI with NS started, urine less concentrated, started clearing up, will continue to monitor.Pt tolerated the procedure well.
[2019-10-21 00:37] VITALS: BP 141/77
[2019-10-21] MEDS: LACTATED RINGERS 1000ML 1,000 ML IV SCH ×2 (03:14→20:50)
[2019-10-21 04:17] VITALS: BP 133/68
[2019-10-21 05:19] LABS: CREATININE 0.8 mg/dL (0.5-1.5); MAGNESIUM 1.9 mg/dL (1.80-2.40); POTASSIUM 3.9 mmol/L (3.5-5.1)
[2019-10-21] MEDS: INSULIN LISPRO 100 UNIT/ML 3ML SQ SCH ×7 (06:23→20:58)
[2019-10-21 08:00] VITALS: BP 144/72
[2019-10-21] MEDS: GABAPENTIN 100 MG CAPSULE PO SCH ×3 (08:23→20:51)
[2019-10-21] MEDS: FAMOTIDINE/PF 20 MG/2 ML VIAL IV SCH (08:23)
[2019-10-21] MEDS: METOPROLOL TARTRATE 25 MG TAB PO SCH ×2 (08:23→20:51)
[2019-10-21] MEDS: NIFEDIPINE ER 30 MG TAB PO SCH (08:23)
[2019-10-21] MEDS ORDERED: INSULIN GLARGINE 100 UNITS/ML 10 ML VIAL SQ SCH (10:00)
[2019-10-21 11:00] VITALS: BP 100/46
[2019-10-21] MEDS: CEFTRIAXONE SODIUM 1 GM IVP SCH (13:50)
[2019-10-21] MEDS: FLUCONAZOLE 100 MG TAB PO SCH (13:50)
[2019-10-21 16:00] VITALS: BP 96/44
--- NOTE | 2019-10-21 17:02 | NUR ---
HOME HEALTH- REFERRAL PENDNG ACCEPTANCE
[2019-10-21 20:20] VITALS: BP 95/41
[2019-10-21] MEDS: DONEPEZIL HCL 5 MG TAB PO SCH (20:51)
[2019-10-22 00:20] VITALS: BP 95/49
[2019-10-22 04:20] VITALS: BP 111/48
[2019-10-22 05:53] LABS: HEMATOCRIT 20.8 % (36-48)
--- NOTE | 2019-10-22 06:00 | NUR ---
PATIENT UPDATE Pt's H/H THIS AM AT 6.7/ 20, no bleeding noted externally. With hx of vaginal bleeding fr before accdg to pt but none noted at this time. Was on the continous bladder for 48 hrs, urine pale yellow, no trace of any pinkish tinged urine at all. Urine had been very clear since the pavon was changed and started on the CBI with NS. Irrigation just ran very slow. Blood pressure overnight had been in the 90's mmhg systolic and 40's to 50's mmhg diastolic, pt denies any lightheadedness. Gamaliel Wheatley PIPING MANAGER called and was made aware of the latest lab results with order received to transfuse 1 unit of prbc and have 1 unit on hold . Consent secured, type and screen ordered for the patient.
[2019-10-22] MEDS ORDERED: SODIUM CHLORIDE 0.9% 250 ML IV ONE (06:26)
[2019-10-22] MEDS: INSULIN LISPRO 100 UNIT/ML 3ML SQ SCH ×7 (06:34→20:37)
[2019-10-22 07:32] VITALS: BP 105/61
[2019-10-22] MEDS ORDERED: INSULIN GLARGINE 100 UNITS/ML 10 ML VIAL SQ SCH (08:30)
--- NOTE | 2019-10-22 08:36 | NUR ---
CM Note: [facility] Medical approval CM received call from Yefri MOMIN, pt had approval for [facility] yesterday. Pt safe to dc via private car once MD clear. Primary nurse aware. CM to cont to follow up.
[2019-10-22] MEDS: GABAPENTIN 100 MG CAPSULE PO SCH ×3 (09:54→20:38)
[2019-10-22] MEDS: FAMOTIDINE/PF 20 MG/2 ML VIAL IV SCH (09:54)
[2019-10-22] MEDS: LACTATED RINGERS 1000ML 1,000 ML IV SCH ×2 (10:02→21:59)
[2019-10-22] MEDS: PANTOPRAZOLE 40 MG/VIAL IVP SCH ×2 (10:02→17:59)
[2019-10-22 10:48] VITALS: BP 109/49
--- NOTE | 2019-10-22 13:58 | NUR ---
CONSULTED HEMATOLOGY PER DR LA. SPOKE WITH ANSWERING SERVICE, DR ABBASI PLANT RELIABILITY ENGINEER. PENDING CALL BACK.
[2019-10-22 14:24] LABS: % IRON SATURATION 33.3 % (22-44)
[2019-10-22] MEDS: CEFTRIAXONE SODIUM 1 GM IVP SCH (14:50)
[2019-10-22] MEDS: FLUCONAZOLE 100 MG TAB PO SCH (14:50)
[2019-10-22 15:14] VITALS: BP 129/46
--- NOTE | 2019-10-22 17:23 | NUR ---
PER MD ORDERS 1 UNIT OF PRBC GIVEN TO PT: CHECKED AND VERIFIED UNIT WITH GLENNA PEDERSON. IDENTIFIED PT NAME AND DATE OF . DINAH CROSS MATCHED UNIT OF BLOOD AND BLOOD FORM. ONCE VERIFIED, PROCEEDED WITH ADMINISTERING BLOOD UNIT PER MD ORDER. MONITORED PT FOR 15 MIN, NO SIGNS OF REACTION TO BLOOD NOTED. VITALS STABLE. PT DENIES ANY DISCOMFORT AND IN NO SIGNS OF DISTRESS. WILL CONTINUE TO MONITOR.
[2019-10-22] MEDS: DONEPEZIL HCL 5 MG TAB PO SCH (20:37)
[2019-10-22 21:41] VITALS: BP 142/53
[2019-10-22 21:43] LABS: MEAN CORPUSCULAR HEMOGLOBIN 29.6 pg (27.0-33.0); MEAN CORPUSCULAR HGB CONC 32.6 g/dL (32.0-36.0); MEAN CORPUSCULAR VOLUME 90.9 fL (79-99); PLATELET COUNT (AUTO) 239 K/uL (130-400); RED BLOOD CELL COUNT(AUTO) 2.97 MIL/uL (4.00-5.50); RED CELL DISTRIBUTION WIDTH 14.4 % (11.0-15.5); WHITE BLOOD COUNT (AUTO) 8.6 K/uL (4.8-10.8)
[2019-10-22 22:44] LABS: BAND NEUTROPHILS % (MANUAL) 1 % (0-2); EOSINOPHILS % (MANUAL) 1 % (1-6); LYMPHOCYTES % (MANUAL) 19 % (22-44); MAN.DIFF COMMENT-IMPRESSION MANUAL DIFFERENTIAL; MONOCYTES % (MANUAL) 4 % (2-9); SEGMENTED NEUTROPHILS % 75 % (40-70)
[2019-10-22 22:45] LABS: PLATELET MORPHOLOGY COMMENT ADEQUATE
[2019-10-23 00:15] VITALS: BP 148/50
--- NOTE | 2019-10-23 04:31 | NUR ---
CONTINUED WITH CONTINOUS BLADDER IRRIGATION WITH 500 ML OF NORMAL SALINE AND OUTPUT OF 1,900 ML. TOTAL URINE OUTPUT IS 1,400 ML.
[2019-10-23 04:35] VITALS: BP 145/55
[2019-10-23] MEDS: INSULIN LISPRO 100 UNIT/ML 3ML SQ SCH ×7 (05:23→20:53)
[2019-10-23] MEDS: PANTOPRAZOLE 40 MG/VIAL IVP SCH ×2 (05:23→16:33)
[2019-10-23 05:24] LABS: BASOPHILS % (AUTO) 0.2 % (0.0-5.0); EOSINOPHILS % (AUTO) 2.2 % (0.0-8.0); HEMATOCRIT 28.1 % (36-48); LYMPHOCYTES % (AUTO) 19.7 % (21.0-51.0); MEAN CORPUSCULAR HEMOGLOBIN 29.6 pg (27.0-33.0); MEAN CORPUSCULAR HGB CONC 32.7 g/dL (32.0-36.0); MEAN CORPUSCULAR VOLUME 90.4 fL (79-99); MONOCYTES % (AUTO) 6.6 % (3.0-13.0); NEUTROPHILS % (AUTO) 70.1 % (40.0-77.0); PLATELET COUNT (AUTO) 262 K/uL (130-400); RED BLOOD CELL COUNT(AUTO) 3.11 MIL/uL (4.00-5.50); RED CELL DISTRIBUTION WIDTH 14.6 % (11.0-15.5); WHITE BLOOD COUNT (AUTO) 8.2 K/uL (4.8-10.8)
[2019-10-23 05:55] LABS: BILIRUBIN,TOTAL 0.1 mg/dL (0.2-1.0); CREATININE 1.1 mg/dL (0.5-1.5); POTASSIUM 3.9 mmol/L (3.5-5.1); TOTAL PROTEIN, SERUM 5.4 g/dL (6.0-8.3)
[2019-10-23 08:00] VITALS: BP 162/59
--- NOTE | 2019-10-23 08:00 | NUR ---
AM SHIFT ASSESSMENT:CBI STILL IN PROGRESS, WILL ASK IF IT CAN BE STOPPED, URINE HAS BEEN SUPER CLEAR, PALE YELLOW COLOR
[2019-10-23] MEDS ORDERED: INSULIN GLARGINE 100 UNITS/ML 10 ML VIAL SQ ONE (09:00)
[2019-10-23] MEDS ORDERED: INSULIN GLARGINE 100 UNITS/ML 10 ML VIAL SQ SCH (09:00)
--- NOTE | 2019-10-23 10:00 | NUR ---
CBI DISCONTINUED. WILL CONTINUE TO MONITOR URINE COLOR AND OUTPUT.
[2019-10-23] MEDS: FAMOTIDINE/PF 20 MG/2 ML VIAL IV SCH (10:27)
[2019-10-23] MEDS: GABAPENTIN 100 MG CAPSULE PO SCH ×3 (10:28→20:55)
[2019-10-23 11:00] VITALS: BP 176/77
[2019-10-23] MEDS: CEFTRIAXONE SODIUM 1 GM IVP SCH (12:57)
[2019-10-23] MEDS: FLUCONAZOLE 100 MG TAB PO SCH (14:27)
[2019-10-23 16:00] VITALS: BP 166/70
--- NOTE | 2019-10-23 16:00 | NUR ---
C/O OF PAIN TO LT UPPER QUAD. UPON CHECKING TO APPLY LIDODERM PATCH NOTED PT TO HAVE RASH WITH PUSTULES, AND FOLLOWED A NERVE PATTERN. NOTIFIED D
--- NOTE | 2019-10-23 16:00 | NUR ---
placed on contact iso.
[2019-10-23] MEDS ORDERED: LIDOCAINE 5% TOPICAL PATCH TP ONE (16:14)
[2019-10-23] MEDS: DONEPEZIL HCL 5 MG TAB PO SCH (20:54)
[2019-10-23] MEDS: DIPHENHYDRAMINE HCL 25 MG CAPSULE PO PRN (21:47)
[2019-10-23 22:06] VITALS: BP 168/82
[2019-10-24 01:18] VITALS: BP 160/73
[2019-10-24] MEDS: INSULIN LISPRO 100 UNIT/ML 3ML SQ SCH ×7 (05:57→21:00)
[2019-10-24 06:00] VITALS: BP 168/86
[2019-10-24 06:12] LABS: HEMATOCRIT 31.2 % (36-48)
[2019-10-24] MEDS: PANTOPRAZOLE 40 MG/VIAL IVP SCH (06:21)
--- NOTE | 2019-10-24 06:40 | NUR ---
spoke with ector mcdowell on patient's continous high systolic blood pressures in the 160's. no knew orders. '
[2019-10-24 08:38] VITALS: BP 167/87
[2019-10-24] MEDS ORDERED: LIDOCAINE 5% TOPICAL PATCH TP SCH (09:00)
[2019-10-24] MEDS: VALACYCLOVIR HCL 500 MG TABLET PO SCH ×3 (10:47→21:57)
[2019-10-24] MEDS: ACETAMINOPHEN 325 MG TAB PO PRN ×2 (10:49→22:00)
[2019-10-24] MEDS: FAMOTIDINE/PF 20 MG/2 ML VIAL IV SCH (10:50)
[2019-10-24] MEDS: GABAPENTIN 100 MG CAPSULE PO SCH ×3 (10:50→22:00)
[2019-10-24] MEDS: PANTOPRAZOLE SODIUM 40 MG TABLET.DR PO SCH ×2 (10:51→17:06)
[2019-10-24 12:18] VITALS: BP 155/75
[2019-10-24] MEDS: INSULIN GLARGINE 100 UNITS/ML 10 ML VIAL SQ SCH (13:15)
[2019-10-24] MEDS: CEFTRIAXONE SODIUM 1 GM IVP SCH (13:26)
[2019-10-24] MEDS: FLUCONAZOLE 100 MG TAB PO SCH (13:49)
[2019-10-24] MEDS ORDERED: CEPH500B PO (14:48)
[2019-10-24] MEDS ORDERED: INSLAN SQ (14:48)
[2019-10-24] MEDS ORDERED: GABA300C PO (14:48)
[2019-10-24] MEDS ORDERED: VALA500T PO (14:48)
[2019-10-24 16:00] VITALS: BP 116/64
--- NOTE | 2019-10-24 17:42 | NUR ---
CALL DAUGHTER T/C PLACED TO DAUGHTER, KERI, NO ANSWER LEFT MESSAGE TO CALL PRIMARY. NO OTHER PHONE LISTED. INFORMED PRIMARY NATAN THAT I CALLED AND INSTRUCTED IN THE MESSAGE TO CALL YOUR SPECTRA
--- NOTE | 2019-10-24 18:00 | NUR ---
24 HR URINE COLLECTION INITIATED
--- NOTE | 2019-10-24 19:55 | NUR ---
PER PT FAMILY DOES NOT ANSWER HER CALLS NO TRANSPORTATION HOME. PAGED HOSPITALIST SIDE SEAM TENDER. TO NOTIFY.
[2019-10-24 20:00] VITALS: BP 146/72
[2019-10-24] MEDS: DIPHENHYDRAMINE HCL 25 MG CAPSULE PO PRN (21:58)
[2019-10-24] MEDS: DONEPEZIL HCL 5 MG TAB PO SCH (22:00)
[2019-10-25] VITALS: BP 158/84
[2019-10-25 03:57] VITALS: BP 144/68
[2019-10-25] MEDS: ACETAMINOPHEN 325 MG TAB PO PRN (05:28)
[2019-10-25] MEDS: INSULIN LISPRO 100 UNIT/ML 3ML SQ SCH ×6 (06:50→16:30)
[2019-10-25] MEDS: PANTOPRAZOLE SODIUM 40 MG TABLET.DR PO SCH ×2 (06:50→16:06)
[2019-10-25] MEDS: INSULIN GLARGINE 100 UNITS/ML 10 ML VIAL SQ SCH (08:11)
[2019-10-25 08:25] VITALS: BP 134/55
[2019-10-25] MEDS: FAMOTIDINE/PF 20 MG/2 ML VIAL IV SCH (08:34)
[2019-10-25] MEDS: VALACYCLOVIR HCL 500 MG TABLET PO SCH ×2 (08:35→13:46)
[2019-10-25] MEDS: GABAPENTIN 100 MG CAPSULE PO SCH ×2 (08:35→13:47)
--- NOTE | 2019-10-25 10:33 | NUR ---
CALL TO DAUGHTER KERI HIGH. STATES SHE WAS OUT OF TOWN- PROBLEMS WITH HER PHONE, GOT BACK LATE YESTERDAY , ANTICIPATING DISCHAGE TODAY. EXPLAINED TO JAMA THAT PT HAS A TEST GOING UNTIL 6 PM AND NURSE WILL CALL AFTER THAT Addendum: 10/25/19 at 1035 by DEDE BROCK RN CM Amended: Links added.
[2019-10-25 12:00] VITALS: BP 134/55
[2019-10-25] MEDS: CEFTRIAXONE SODIUM 1 GM IVP SCH (13:05)
[2019-10-25] MEDS: FLUCONAZOLE 100 MG TAB PO SCH (13:47)
[2019-10-25 17:07] VITALS: BP 132/66
--- NOTE | 2019-10-25 17:30 | NUR ---
[facility] REPORT GIVEN TO NURSE FIGUEROA OF [facility] [phone]. INFORMED PATIENT TO BE DISCHARGED HOME TODAY.
--- NOTE | 2019-10-25 17:40 | NUR ---
DISCHARGE SPOKE TO PATIENTS DAUGHTER, POLLY HIGH ([phone]), AND INFORMED THAT ORDERED LAB TEST WOULD BE FINISHED AT 6:00 PM THIS EVENING SO PATIENT WOULD BE READY FOR PICKUP THIS EVENING AFTER 6:00 PM. Julio Cesar HIGH TOLD ME SHE WOULD BE ABLE TO DIGITAL PHOTOGRAPHER PATIENT AFTER 6:00 PM. Julio Cesar HIGH AGREED TO RECEIVE DISCHARGE TEACHING VIA TELEPHONE BECAUSE PATIENT ASKED ME TO GIVE THE INFORMATION TO HER DAUGHTER [Julio Cesar HIGH]. INFORMED THAT PATIENT WOULD BE DISCHARGE WITH NEW PRESCRIPTIONS (NEURONTIN, KEFLEX, VALTREX, AND LANTUS) AND REASON FOR RX. INFORMED THAT PATIENT WOULD BE DISCHARGE WITH DENIS CATHETER IN PLACE PER DR. YAO'S RECOMMENDATION. 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 I CLARIFIED "SO, YOU ARE FAMILIAR WITH TAKING CARE OF DENIS CATHETER SUCH MAKING SURE THE DENIS BAG IS BELOW THE BLADDER, EMPTY DENIS BAG WHEN HALF FULL, MAKING SURE TUBING IS NOT COILED?" AND Julio Cesar HIGH REPLIED "OH, YES I KNOW HOW TO TAKE CARE OF FOLEYS." I ALSO INFORMED Julio Cesar HIGH THAT ONE WEEK FOLLOW-UP APPOINTMENT WITH DR. YAO IS PENDING TO BE SCHEDULED. INFORMED THAT DR. YAO'S OFFICE REQUIRES FOLLOW-UP APPOINTMENTS TO BE SCHEDULED BY PATIENT'S PRIMARY DOCTOR. STRESSED THE IMPORTANCE OF MAKING SURE PATIENT SEES HER PRIMARY DOCTOR WITHIN THE NEXT 3-5 DAYS TO ENSURE PATIENT GETS APPOINTMENT TO SEE DR. YAO NEXT WEEK SO THAT DR. YAO COULD CONTINUE MANAGEMENT OF DENIS CATHETER. ALSO INFORMED THAT FOLLOW-UP APPOINTMENT WITH DR. PACE AND DR. ODOM PENDING TO BE SCHEDULED. GIVEN MD OFFICE CONTACT PHONE NUMBERS. INFORMED ALL INFORMATION WOULD BE INCLUDED IN DISCHARGE PAPERWORK FOLDER. Julio Cesar HIGH VERBALIZED UNDERSTANDING OF DISCHARGE TEACHING AND STATED SHE WOULD ARRIVE TO DIGITAL PHOTOGRAPHER PATIENT AFTER 6:00PM TODAY.
== END 2019-10-25 19:35 | disposition home health service (06) | DRG 70 ==
LOC: EDH 11:34 → EDHIP 13:57 → 2BH 15:05 → 3CH 10-17 17:00
PROVIDERS: ADMIT Family Medicine; ATTEND Family Medicine
PROC: 30233N1 Transfusion of Nonautologous Red Blood Cells into Peripheral Vein, Percutaneous Approach (ICD-10-PCS; principal; 2019-10-23)
DX: G93.41 Metabolic encephalopathy (principal); E10.10 Type 1 diabetes mellitus with ketoacidosis without coma; K85.90 Acute pancreatitis without necrosis or infection, unspecified; N17.9 Acute kidney failure, unspecified; E87.4 Mixed disorder of acid-base balance; E44.0 Moderate protein-calorie malnutrition; N13.6 Pyonephrosis; E86.0 Dehydration; E10.22 Type 1 diabetes mellitus with diabetic chronic kidney disease; E10.40 Type 1 diabetes mellitus with diabetic neuropathy, unspecified; E87.5 Hyperkalemia; N18.9 Chronic kidney disease, unspecified; I12.9 Hypertensive chronic kidney disease with stage 1 through stage 4 chronic kidney disease, or unspecified chronic kidney disease; D64.9 Anemia, unspecified; R74.8 Abnormal levels of other serum enzymes; E86.1 Hypovolemia; B02.9 Zoster without complications; E87.6 Hypokalemia; F02.80 Dementia in other diseases classified elsewhere, unspecified severity, without behavioral disturbance, psychotic disturbance, mood disturbance, and anxiety; G30.9 Alzheimer's disease, unspecified; J44.9 Chronic obstructive pulmonary disease, unspecified; Z68.21 Body mass index [BMI] 21.0-21.9, adult; Z79.4 Long term (current) use of insulin; Z87.440 Personal history of urinary (tract) infections; Z83.3 Family history of diabetes mellitus
CPT/HCPCS: 36415; 36430; 36600; 71045; 74176; 76700; 76770; 76856; 80048; 80053; 81001; 82010; 82150; 82270; 82435; 82550; 82803; 82947; 82948; 83036; 83540; 83550; 83605; 83690; 83735; 83880; 83883; 84100; 84132; 84145; 84156; 84166; 84295; 85014; 85018; 85025; 86325; 86334; 86850; 86900; 86901; 86922; 87040; 87088; 93005; 94640; 97039; 99291; C9113; G0378; J0610; J0696; J1650; J1815; J2405; J2543; J3475; J3490; J7030; J7050; J7120; P9016; Q0163

== ENCOUNTER 2019-11-15 17:57 | Inpatient (IN) | payer MEDICARE ==
[~2019-11-15] VITALS: Ht 162.6 cm; Wt 44.7 kg
[~2019-11-15 17:57] MED LIST: CEPH500B PO; DONE5TAB33 PO; GABA300C PO; INSLAN SQ; LISI-617 PO; METO25 PO; NIFE30TA98 PO; ONDA4TAB4 PO; VALA500T PO
[2019-11-15] MEDS ORDERED: SODIUM CHLORIDE 0.9% 1000ML 1,000 ML IV ONE (18:17)
[2019-11-15] MEDS ORDERED: CEFTRIAXONE SODIUM 2 GM VIAL ONE (18:26)
[2019-11-15 18:40] LABS: BASOPHILS % (AUTO) 0.7 % (0.0-5.0); EOSINOPHILS % (AUTO) 3.1 % (0.0-8.0); HEMATOCRIT 33.6 % (36-48); LYMPHOCYTES % (AUTO) 34.9 % (21.0-51.0); MEAN CORPUSCULAR HEMOGLOBIN 29.9 pg (27.0-33.0); MEAN CORPUSCULAR HGB CONC 31.5 g/dL (32.0-36.0); MEAN CORPUSCULAR VOLUME 94.6 fL (79-99); MONOCYTES % (AUTO) 5.8 % (3.0-13.0); NEUTROPHILS % (AUTO) 55.2 % (40.0-77.0); PLATELET COUNT (AUTO) 266 K/uL (130-400); RED BLOOD CELL COUNT(AUTO) 3.55 MIL/uL (4.00-5.50); RED CELL DISTRIBUTION WIDTH 14.3 % (11.0-15.5); WHITE BLOOD COUNT (AUTO) 7.5 K/uL (4.8-10.8)
[2019-11-15 18:56] LABS: CARBON DIOXIDE 24 mmol/L (21-32); CHLORIDE 97 mmol/L (101-111); CREATININE 2.6 mg/dL (0.5-1.5); GLOMERULAR FILTR. RATE CALC 19 mL/min (>60); GLUCOSE,RANDOM 197 mg/dL (70-105); INR 0.88 (0.85-1.15); PARTIAL THROMBOPLASTIN TIME 23.1 SEC (26.3-35.5); PROTHROMBIN TIME 9.6 SEC (9.6-11.6); SODIUM SERUM 135 mmol/L (136-145); UREA NITROGEN, BLOOD 45 mg/dL (7-18)
[2019-11-15 19:09] LABS: ALANINE AMINOTRANSFERASE 16 U/L (12-78); ALBUMIN 3.8 g/dL (3.5-5.0); ASPARTATE AMINOTRANSFERASE 12 U/L (10-37); BILIRUBIN,TOTAL 0.6 mg/dL (0.2-1.0); CREATINE KINASE, TOTAL 18 U/L (21-232); MYOGLOBIN 46 ng/mL (10-92); TOTAL PROTEIN, SERUM 7.7 g/dL (6.0-8.3); TROPONIN I < 0.04 ng/mL (0.00-0.06)
[2019-11-15] MEDS ORDERED: SODIUM CHLORIDE 0.9% 1000ML 1,000 ML IV SCH ×2 (21:17→21:30)
[2019-11-15] MEDS ORDERED: DIPHENHYDRAMINE HCL 25 MG CAPSULE PO PRN (21:30)
[2019-11-15] MEDS ORDERED: ACETAMINOPHEN 325 MG TAB PO PRN ×2 (21:30)
[2019-11-15] MEDS ORDERED: ONDANSETRON HCL 4 MG/2 ML VIAL IV PRN (21:30)
[2019-11-15] MEDS ORDERED: NITROGLYCERIN 0.4 MG SL TAB SL PRN (21:30)
[2019-11-15] MEDS ORDERED: GLUCAGON 1MG KIT 1 MG ML IM PRN (21:30)
[2019-11-15] MEDS ORDERED: DEXTROSE 50%-WATER 50 ML DISP.SYRIN IV PRN (21:30)
[2019-11-15 22:27] LABS: APPEARANCE,URINE Turbid (CLEAR); BILIRUBIN,URINE Negative (NEGATIVE); COLOR,URINE Yellow (YELLOW); GLUCOSE, URINE (UA) >=1000 mg/dL (NEGATIVE); KETONES,URINE Trace mg/dL (NEGATIVE); LEUKOCYTE ESTERASE ,URINE Large (NEGATIVE); NITRATE,URINE Positive (NEGATIVE); OCCULT BLOOD,URINE Trace (NEGATIVE); PROTEIN,URINE POS 2+ mg/dL (NEGATIVE)
[2019-11-15] MEDS ORDERED: ENOXAPARIN SODIUM 30 MG/0.3 ML SQ ONE (22:27)
[2019-11-15] MEDS ORDERED: FAMOTIDINE/PF 20 MG/2 ML VIAL IV ONE (22:35)
[2019-11-15 22:39] LABS: AMPHET/METH SCREEN,URINE NEGATIVE (NEGATIVE); BARBITURATE SCREEN, URINE NEGATIVE (NEGATIVE); BENZODIAZEPINES SCREEN,URINE NEGATIVE (NEGATIVE); CANNABINOID SCREEN,URINE NEGATIVE (NEGATIVE); COCAINE SCREEN,URINE NEGATIVE (NEGATIVE); OPIATE SCREEN,URINE NEGATIVE (NEGATIVE); PHENCYCLIDINE SCREEN,URINE NEGATIVE (NEGATIVE)
[2019-11-15 22:51] LABS: BACTERIA,URINE Moderate /HPF (None Seen); RBC,URINE 0-1 /HPF (0-1); YEAST,URINE BUDDING Many /HPF (None Seen)
[2019-11-16 05:15] LABS: HEMATOCRIT 29.9 % (36-48); MEAN CORPUSCULAR HEMOGLOBIN 29.9 pg (27.0-33.0); MEAN CORPUSCULAR HGB CONC 31.8 g/dL (32.0-36.0); PLATELET COUNT (AUTO) 218 K/uL (130-400); RED BLOOD CELL COUNT(AUTO) 3.18 MIL/uL (4.00-5.50); RED CELL DISTRIBUTION WIDTH 13.9 % (11.0-15.5); WHITE BLOOD COUNT (AUTO) 6.2 K/uL (4.8-10.8)
[2019-11-16 05:30] LABS: BAND NEUTROPHILS % (MANUAL) 2 % (0-2); EOSINOPHILS % (MANUAL) 2 % (1-6); LYMPHOCYTES % (MANUAL) 22 % (22-44); MAN.DIFF COMMENT-IMPRESSION MANUAL DIFFERENTIAL; MONOCYTES % (MANUAL) 6 % (2-9); PLATELET MORPHOLOGY COMMENT ADEQUATE; SEGMENTED NEUTROPHILS % 68 % (40-70)
[2019-11-16 05:39] LABS: ALBUMIN 2.8 g/dL (3.5-5.0); BILIRUBIN,TOTAL 0.2 mg/dL (0.2-1.0); CREATININE 1.5 mg/dL (0.5-1.5); POTASSIUM 3.5 mmol/L (3.5-5.1); TOTAL PROTEIN, SERUM 6.3 g/dL (6.0-8.3)
[2019-11-16] MEDS: INSULIN HUMULIN R 100 UNIT/ML 3ML SQ SCH ×4 (07:30→21:00)
[2019-11-16] MEDS: CEFTRIAXONE SODIUM 1 GM IVP SCH (09:00)
[2019-11-16] MEDS: ENOXAPARIN SODIUM 30 MG/0.3 ML SQ SCH (09:00)
[2019-11-16] MEDS: FAMOTIDINE 20MG TAB 20 MG TAB PO SCH (09:00)
[2019-11-16 12:00] VITALS: BP 161/69
--- NOTE | 2019-11-16 12:18 | NUR ---
CHART CHECK COMPLETED. Pt IS A 74 Y.O. FEMALE ADMITTED SECONDARY TO HYPOTENSION, BRADYCARDIA, LACTIC ACIDOSIS, UTI. Pt HAS A PAST MEDICAL HISTORY SIGNIFICANT FOR CHF,DMII, DKA, ACUTE KIDNEY INJURY, HYPERTENSION, PANCREATITIS, SEPSIS, UTI, ANEMIA, HYDRONEPHROSIS, SHINGLES. Pt CURRENTLY ON A HEART HEALTHY DIET (REGULAR TEXTURE, THIN LIQUIDS). PLEASE REQUEST A FORMAL SKILLED SPEECH/SWALLOW EVALUATION IF Pt PRESENTS WITH DIFFICULTY SWALLOWING OR S/S OF ASPIRATION. Addendum: 11/16/19 at 1223 by PAULIE DOWLING [facility] Amended: Links added.
--- NOTE | 2019-11-16 12:45 | NUR ---
Cardiology Consult Informed by ER patrol community service officer Sallie that [facility] aware of consult.
[2019-11-16] MEDS ORDERED: HYDRALAZINE HCL 20 MG/ML VIAL IV PRN (13:00)
--- NOTE | 2019-11-16 15:35 | NUR ---
Dr. Reuben MORALES aware of consult and here to see patient.
[2019-11-16 16:00] VITALS: BP 180/79
[2019-11-16] MEDS ORDERED: INSULIN GLARGINE 100 UNITS/ML 10 ML VIAL SQ SCH (17:00)
[2019-11-16] MEDS ORDERED: INSULIN LISPRO 100 UNIT/ML 3ML SQ SCH (17:00)
[2019-11-17 06:05] LABS: HEMATOCRIT 33.8 % (36-48); MEAN CORPUSCULAR HEMOGLOBIN 30.5 pg (27.0-33.0); MEAN CORPUSCULAR HGB CONC 32.8 g/dL (32.0-36.0); MEAN CORPUSCULAR VOLUME 92.9 fL (79-99); RED BLOOD CELL COUNT(AUTO) 3.64 MIL/uL (4.00-5.50); RED CELL DISTRIBUTION WIDTH 13.7 % (11.0-15.5); WHITE BLOOD COUNT (AUTO) 6.1 K/uL (4.8-10.8)
[2019-11-17 06:46] LABS: CREATININE 1.1 mg/dL (0.5-1.5); POTASSIUM 3.6 mmol/L (3.5-5.1)
[2019-11-17] MEDS: INSULIN HUMULIN R 100 UNIT/ML 3ML SQ SCH ×4 (07:30→21:00)
[2019-11-17 09:00] VITALS: BP 183/91
[2019-11-17] MEDS ORDERED: NIFEDIPINE ER 30 MG TAB PO SCH (09:15)
[2019-11-17] MEDS: ENOXAPARIN SODIUM 30 MG/0.3 ML SQ SCH (10:30)
[2019-11-17] MEDS: CEFTRIAXONE SODIUM 1 GM IVP SCH (11:00)
[2019-11-17] MEDS ORDERED: ENOXAPARIN SODIUM 30 MG/0.3 ML SQ ONE (11:18)
[2019-11-17] MEDS ORDERED: CEFAZOLIN SODIUM 1 GM VIAL ONE (11:18)
[2019-11-17] MEDS ORDERED: INSULIN HUMULIN R 100 UNIT/ML 3ML ONE (11:22)
[2019-11-17] MEDS ORDERED: NIFEDIPINE 10 MG CAP ONE ×2 (11:39→22:02)
[2019-11-17 12:10] VITALS: BP 173/71
[2019-11-17 16:08] VITALS: BP 126/51
[2019-11-17] MEDS: NIFEDIPINE ER 30 MG TAB PO SCH (21:00)
[2019-11-17] MEDS ORDERED: NIFEDIPINE ER 30 MG TAB PO ONE (22:25)
[2019-11-17 23:48] VITALS: BP 155/71
[2019-11-18 04:00] VITALS: BP 118/63
[2019-11-18 06:36] LABS: CREATININE 1.2 mg/dL (0.5-1.5); POTASSIUM 4.1 mmol/L (3.5-5.1)
[2019-11-18 06:39] LABS: HEMATOCRIT 31.1 % (36-48); MEAN CORPUSCULAR HEMOGLOBIN 30.8 pg (27.0-33.0); MEAN CORPUSCULAR HGB CONC 32.5 g/dL (32.0-36.0); MEAN CORPUSCULAR VOLUME 94.8 fL (79-99); RED BLOOD CELL COUNT(AUTO) 3.28 MIL/uL (4.00-5.50); RED CELL DISTRIBUTION WIDTH 14.2 % (11.0-15.5); WHITE BLOOD COUNT (AUTO) 5.9 K/uL (4.8-10.8)
[2019-11-18] MEDS: INSULIN HUMULIN R 100 UNIT/ML 3ML SQ SCH ×4 (07:30→21:00)
[2019-11-18 07:42] VITALS: BP 159/79
[2019-11-18] MEDS: CEFTRIAXONE SODIUM 1 GM IVP SCH (08:32)
[2019-11-18] MEDS: ENOXAPARIN SODIUM 30 MG/0.3 ML SQ SCH (08:32)
[2019-11-18] MEDS: FAMOTIDINE 20MG TAB 20 MG TAB PO SCH (08:32)
[2019-11-18] MEDS: NIFEDIPINE ER 30 MG TAB PO SCH ×2 (08:37→21:13)
--- NOTE | 2019-11-18 10:41 | NUR ---
DR MORALES MADE ROUNDS AT BEDSIDE. POSSIBLE DC HOME TOMORROW. PT DEBILITATED/WEAK. URINE STILL CLOUDY AND FOUL. INFORMED DR MORALES THAT PT DECONDITIONED. PHYSICAL THERAPY DISCUSSED Addendum: 11/18/19 at 1343 by ADDISON ROBB RN RN DR Lizzette MIRELES ROUNDED NOT DR MORALES
[2019-11-18 11:56] VITALS: BP 176/86
[2019-11-18] MEDS ORDERED: LEVOFLOXACIN 500 MG/D5W 100 ML 100 ML IV SCH (12:45)
[2019-11-18] MEDS ORDERED: FLUCONAZOLE 100 MG TAB PO SCH (12:45)
[2019-11-18] MEDS: LISINOPRIL 5 MG TABLET PO SCH (13:26)
--- NOTE | 2019-11-18 13:42 | NUR ---
I HAVE TRIED TO SPEAK TO DAUGHTER AND INFORM HER OF DC PLAN. SHE WAS UNAVAILABLE. I TANAFT SALVADOR FOR HER TO CALL ME BACK
--- NOTE | 2019-11-18 14:22 | NUR ---
PHYSICAL THERAPY EVAL AND TREAT IN PROGRESS
[2019-11-18 15:32] VITALS: BP 142/76
--- NOTE | 2019-11-18 16:00 | NUR ---
cm note spoke to pt states resides athome with daughter , uses walker for ambulation. discussed snf level of care as orderd by md , pt states does not want to go to snf level, but will think about it and let cm know tomorrow. but is ok for me to speak to her daughter. Radha POLK, call made to listed numbers [phone] and [phone], but no answer. will continue to followup.
[2019-11-18 20:00] VITALS: BP 102/46
[2019-11-18 23:23] VITALS: BP 121/57
[2019-11-19 04:00] VITALS: BP 144/64
[2019-11-19] MEDS: INSULIN HUMULIN R 100 UNIT/ML 3ML SQ SCH ×4 (06:24→20:52)
--- NOTE | 2019-11-19 07:08 | NUR ---
Patient remained stable, endorsed care to incoming NOD using SBAr .All questions answered.
[2019-11-19 07:47] VITALS: BP 111/48
[2019-11-19] MEDS: NIFEDIPINE ER 30 MG TAB PO SCH ×3 (08:49→21:00)
[2019-11-19] MEDS: FLUCONAZOLE 100 MG TAB PO SCH (08:50)
[2019-11-19] MEDS: ENOXAPARIN SODIUM 30 MG/0.3 ML SQ SCH (08:50)
[2019-11-19] MEDS: LISINOPRIL 5 MG TABLET PO SCH (08:50)
[2019-11-19 11:37] VITALS: BP 107/63
[2019-11-19] MEDS: LEVOFLOXACIN 250 MG/D5W 50ML 50 ML IVPB SCH (13:31)
--- NOTE | 2019-11-19 14:36 | NUR ---
cm note spoke to pt regarding snf level of care for rehab. but, states she does not wish to go to a snf. i informed her that I left message for daughter yessica to return back call, but no answer yet. will continue to f/u. informed primary nurse Salvador to obtain a phone # that she can be reached at. for possible rehab.
[2019-11-19 16:00] VITALS: BP 119/64
[2019-11-19 20:12] VITALS: BP 108/50
--- NOTE | 2019-11-19 22:00 | NUR ---
NURSING ROUNDS Pt resting in bed on rounds, comfortably lying with the head of the bed flat. Stated that she starts having discomfort from her lower back every time that somebody gets the head of the bed up. Denies any discomfort, voids per bedpan. Pt on contact isolation for esbl in the urine. Made aware about the discharge planning to a snf and strongly disagree with the plan. Insists on being discharge to home, made aware that we will be talking to the daughter in the am.
[2019-11-20] VITALS (7 sets, daily range): BP systolic 109–136; BP diastolic 49–64
[2019-11-20 03:37] LABS: BASOPHILS % (AUTO) 0.9 % (0.0-5.0); EOSINOPHILS % (AUTO) 2.6 % (0.0-8.0); HEMATOCRIT 28.6 % (36-48); LYMPHOCYTES % (AUTO) 31.5 % (21.0-51.0); MEAN CORPUSCULAR HGB CONC 32.9 g/dL (32.0-36.0); MEAN CORPUSCULAR VOLUME 94.4 fL (79-99); MONOCYTES % (AUTO) 7.9 % (3.0-13.0); NEUTROPHILS % (AUTO) 56.9 % (40.0-77.0); PLATELET COUNT (AUTO) 202 K/uL (130-400); RED BLOOD CELL COUNT(AUTO) 3.03 MIL/uL (4.00-5.50); WHITE BLOOD COUNT (AUTO) 5.8 K/uL (4.8-10.8)
[2019-11-20 03:53] LABS: ALBUMIN 2.8 g/dL (3.5-5.0); BILIRUBIN,TOTAL 0.3 mg/dL (0.2-1.0); CREATININE 1.1 mg/dL (0.5-1.5); POTASSIUM 4.6 mmol/L (3.5-5.1); TOTAL PROTEIN, SERUM 6.5 g/dL (6.0-8.3)
--- NOTE | 2019-11-20 05:17 | NUR ---
PATIENT UPDATE Pt slept well overnight, no complaints voiced out. With gen body weakness, running NSR in the monitor in the 80's, no ectopies noted, afebrile. Blood pressure was running initially in the low 100's mmhg last night, held the 2100 Nifedipine 30 mg. Voided once the whole night, hasn't been drinking enough water. BUN fr 24 yesterday , up to 29 today.
[2019-11-20] MEDS: INSULIN HUMULIN R 100 UNIT/ML 3ML SQ SCH ×4 (05:50→20:35)
[2019-11-20] MEDS: ENOXAPARIN SODIUM 30 MG/0.3 ML SQ SCH (09:35)
[2019-11-20] MEDS: FLUCONAZOLE 100 MG TAB PO SCH (09:36)
[2019-11-20] MEDS: LISINOPRIL 5 MG TABLET PO SCH (09:36)
[2019-11-20] MEDS: FAMOTIDINE 20MG TAB 20 MG TAB PO SCH (09:36)
[2019-11-20] MEDS: NIFEDIPINE ER 30 MG TAB PO SCH ×2 (09:37→20:32)
[2019-11-20] MEDS: LEVOFLOXACIN 250 MG/D5W 50ML 50 ML IVPB SCH (13:00)
--- NOTE | 2019-11-20 13:45 | NUR ---
cm note met with patient and states resides athome with daughter yessica, pt states has [facility], unable to recall # and discusses snf level of care for rehab and is refusing that at this time. call made to daughter yessica as well, pt states yessica cares for her. no answer to listed # [phone] and left voicemessage. also tried [phone] and no answer,
--- NOTE | 2019-11-20 21:37 | NUR ---
SLEEPING Pt sleeping in bed,arousable,denies pain or discomfort.Heart rate sinus rhythm 80's.
[2019-11-21 03:30] VITALS: BP 135/68
[2019-11-21 06:29] LABS: ALBUMIN 2.8 g/dL (3.5-5.0); BILIRUBIN,TOTAL 0.3 mg/dL (0.2-1.0); CREATININE 1.2 mg/dL (0.5-1.5); POTASSIUM 4.8 mmol/L (3.5-5.1); TOTAL PROTEIN, SERUM 6.3 g/dL (6.0-8.3)
[2019-11-21] MEDS: INSULIN HUMULIN R 100 UNIT/ML 3ML SQ SCH ×4 (06:34→21:00)
[2019-11-21 06:43] LABS: BASOPHILS % (AUTO) 0.9 % (0.0-5.0); EOSINOPHILS % (AUTO) 2.9 % (0.0-8.0); HEMATOCRIT 28.4 % (36-48); LYMPHOCYTES % (AUTO) 33.5 % (21.0-51.0); MEAN CORPUSCULAR HGB CONC 32.7 g/dL (32.0-36.0); MEAN CORPUSCULAR VOLUME 94.7 fL (79-99); MONOCYTES % (AUTO) 7.2 % (3.0-13.0); NEUTROPHILS % (AUTO) 55.3 % (40.0-77.0); PLATELET COUNT (AUTO) 198 K/uL (130-400); WHITE BLOOD COUNT (AUTO) 5.6 K/uL (4.8-10.8)
[2019-11-21 07:26] VITALS: BP 121/58
[2019-11-21] MEDS: LISINOPRIL 5 MG TABLET PO SCH (07:52)
[2019-11-21] MEDS: NIFEDIPINE ER 30 MG TAB PO SCH ×2 (07:52→21:38)
[2019-11-21] MEDS: FLUCONAZOLE 100 MG TAB PO SCH (07:52)
[2019-11-21] MEDS: ENOXAPARIN SODIUM 30 MG/0.3 ML SQ SCH (07:54)
[2019-11-21] MEDS: INSULIN GLARGINE 100 UNITS/ML 10 ML VIAL SQ SCH (10:13)
[2019-11-21] MEDS: INSULIN LISPRO 100 UNIT/ML 3ML SQ SCH ×3 (11:11→17:00)
[2019-11-21 11:13] VITALS: BP 106/49
[2019-11-21] MEDS: LEVOFLOXACIN 250 MG/D5W 50ML 50 ML IVPB SCH (12:29)
[2019-11-21 16:00] VITALS: BP 104/54
[2019-11-21 19:38] VITALS: BP 102/40
[2019-11-21 23:00] VITALS: BP 107/50
[2019-11-22 03:03] VITALS: BP 114/53
[2019-11-22 03:59] LABS: BASOPHILS % (AUTO) 0.5 % (0.0-5.0); EOSINOPHILS % (AUTO) 2.9 % (0.0-8.0); HEMATOCRIT 27.1 % (36-48); MEAN CORPUSCULAR HEMOGLOBIN 30.2 pg (27.0-33.0); MEAN CORPUSCULAR HGB CONC 32.5 g/dL (32.0-36.0); MEAN CORPUSCULAR VOLUME 93.1 fL (79-99); MONOCYTES % (AUTO) 7.6 % (3.0-13.0); NEUTROPHILS % (AUTO) 54.8 % (40.0-77.0); PLATELET COUNT (AUTO) 200 K/uL (130-400); RED BLOOD CELL COUNT(AUTO) 2.91 MIL/uL (4.00-5.50); WHITE BLOOD COUNT (AUTO) 5.6 K/uL (4.8-10.8)
[2019-11-22 04:28] LABS: ALBUMIN 2.8 g/dL (3.5-5.0); BILIRUBIN,TOTAL 0.2 mg/dL (0.2-1.0); CREATININE 1.6 mg/dL (0.5-1.5); POTASSIUM 3.9 mmol/L (3.5-5.1); TOTAL PROTEIN, SERUM 6.3 g/dL (6.0-8.3)
[2019-11-22] MEDS: INSULIN HUMULIN R 100 UNIT/ML 3ML SQ SCH ×3 (06:04→16:30)
--- NOTE | 2019-11-22 07:35 | NUR ---
ASSESSMENT ENCOUNTERED PT ASLEEP BUT AROUSEABLE, A&OX3, CALM COOPERATIVE AND DOES NOT APPEAR TO BE IN ANY DISTRESS NOR ANY NEURO DEFICITS PRESENT. PT DENIES PAIN, SOB, NAUSEA. PT IS ABLE TO TOLERATE FOODS, FLUIDS AND MEDICATION WITH NO THROAT CLEARING OR COUGH. PT IS AMBULATORY, GAIT SLOW AND UNSTEADY WITH 1-2 PERSON ASSIST. CALL LIGHT WITHIN REACH.
[2019-11-22 07:45] VITALS: BP 114/53
[2019-11-22] MEDS: INSULIN LISPRO 100 UNIT/ML 3ML SQ SCH ×3 (08:00→17:00)
[2019-11-22] MEDS: ENOXAPARIN SODIUM 30 MG/0.3 ML SQ SCH (09:00)
[2019-11-22] MEDS: INSULIN GLARGINE 100 UNITS/ML 10 ML VIAL SQ SCH (09:00)
[2019-11-22] MEDS: NIFEDIPINE ER 30 MG TAB PO SCH (09:32)
[2019-11-22] MEDS: LISINOPRIL 5 MG TABLET PO SCH (09:32)
[2019-11-22] MEDS: FAMOTIDINE 20MG TAB 20 MG TAB PO SCH (09:32)
[2019-11-22] MEDS: FLUCONAZOLE 100 MG TAB PO SCH (09:32)
[2019-11-22 11:22] VITALS: BP 98/46
[2019-11-22] MEDS: LEVOFLOXACIN 250 MG/D5W 50ML 50 ML IVPB SCH (13:00)
[2019-11-22 15:13] VITALS: BP 111/52
--- NOTE | 2019-11-22 18:46 | NUR ---
DISCHARGE INSTRUCTIONS GIVEN, PIV REMOVED AND INTACT, SPOKE WITH DAUGHTER POLLY HIGH, DISCHARGED HOME TO FAMILY VEHICLE VIA WHEELCHAIR.
== END 2019-11-22 19:30 | disposition home or self-care (01) | DRG 690 ==
LOC: EDH 17:57 → EDHIP 20:26 → DAHIP 11-18 01:24
PROVIDERS: ADMIT Internal Medicine; ATTEND Internal Medicine
DX: N39.0 Urinary tract infection, site not specified (principal); E87.2 Acidosis; N17.9 Acute kidney failure, unspecified; I50.32 Chronic diastolic (congestive) heart failure; I13.0 Hypertensive heart and chronic kidney disease with heart failure and stage 1 through stage 4 chronic kidney disease, or unspecified chronic kidney disease; N10 Acute pyelonephritis; B96.20 Unspecified Escherichia coli [E. coli] as the cause of diseases classified elsewhere; D63.8 Anemia in other chronic diseases classified elsewhere; E11.22 Type 2 diabetes mellitus with diabetic chronic kidney disease; E78.5 Hyperlipidemia, unspecified; E86.0 Dehydration; F02.80 Dementia in other diseases classified elsewhere, unspecified severity, without behavioral disturbance, psychotic disturbance, mood disturbance, and anxiety; G30.9 Alzheimer's disease, unspecified; I49.1 Atrial premature depolarization; N18.2 Chronic kidney disease, stage 2 (mild); Z79.4 Long term (current) use of insulin; Z79.899 Other long term (current) drug therapy; Z91.19 Patient's noncompliance with other medical treatment and regimen; Z20.828 Contact with and (suspected) exposure to other viral communicable diseases
CPT/HCPCS: 36415; 71045; 80048; 80053; 80305; 81001; 82550; 82948; 83605; 83735; 83874; 84145; 84484; 85025; 85027; 85610; 85730; 86900; 86901; 87040; 87077; 87088; 87186; 93005; 93306; 93356; 97039; G0378; J0690; J0696; J1650; J1815; J1956; J3490; J7030; U0003